=== PATIENT | male | born 1940 | race Caucasian/White ===

== ENCOUNTER 2021-03-30 15:59 | Emergency (ER) | payer MEDICARE, SELFPAY ==
[2021-03-30] VITALS (8 sets, daily range): BP systolic 155–185; BP diastolic 87–100; PULSE 82–99; RESP 18–20; TEMP 37.4; O2SAT 93–99
--- NOTE | ~2021-03-30 | CT_ITS ---
EXAMINATION: CT brain wo con DATE: 03/30/2021 17:57 INDICATION: Mental status change TECHNIQUE: Computed tomography (CT) of the head was performed without intravenous contrast. The mA wa s adjusted according to patient size. Iterative reconstruction technique was employed. Exam dose: 68 1.00 mGy-cm total exam DLP. COMPARISON: None FINDINGS: Dominant left vertebral artery, basilar artery and bilateral carotid siphon internal caroti d artery calcifications. Bilateral chronic lacunar infarcts of the basal ganglia, left greater than right. There is nonspecific diminished attenuation of the cerebral white matter, likely due to chronic small vessel ischemic changes. Cerebral and cerebellar volume loss. No recent cerebrovascular accident is evident. There is no evidence of intracranial hemorrhage. No mi dline shift or mass effect effect. No subdural or epidural hematoma. Soft tissue thickening and fluid at the right sphenoid sinus and patchy opacification of the bilatera l ethmoid air cells. Minimal mucoperiosteal thickening of the maxillary sinuses. The mastoid air cells are normally developed and aerated bilaterally. No fracture or bone destruction of the cranial vault. IMPRESSION: Cerebral atherosclerosis and chronic small vessel ischemic changes of the cerebral white matter Bilateral chronic lacunar infarcts of the basal ganglia, left greater than right Cerebral and cerebellar volume loss Paranasal sinus disease Reviewed, dictated and finalized at [facility]. Reviewed, dictated and finalized at [facility]. IMPRESSION: Cerebral atherosclerosis and chronic small vessel ischemic changes of the cerebral white matter Bilateral chronic lacunar infarcts of the basal ganglia, left greater than righ t Cerebral and cerebellar volume loss Paranasal sinus disease
--- NOTE | ~2021-03-30 | XR_ITS ---
EXAMINATION: XR chest 1V portable DATE: 03/30/2021 17:22 INDICATION: Shortness of breath and wheezing TECHNIQUE: frontal view of the chest was obtained. COMPARISON: None FINDINGS: Calcite nodules at the right lung base and calcified right hilar lymph nodes consistent with old gran ulomatous disease. No other airspace opacities, pulmonary edema, pleural effusion or pneumothorax. Th e cardiomediastinal silhouette is normal. Moderate thoracic spondylosis. IMPRESSION: 1. No acute cardiopulmonary disease. Reviewed, dictated and finalized at [facility].
[2021-03-30 16:52] LABS: Basophils Absolute Auto 0.02 K/mm3 (0.00-0.10); Basophils Percent Auto 0.1 % (0.0-1.0); Hematocrit 43.8 % (37.0-46.0); Hemoglobin 15.1 g/dL (12.4-15.3); Immature Granulocyte Absolute 0.08 K/mm3 (0.00-0.00); Immature Granulocyte Percent A 0.5 % (0.0-0.0); Lymphocytes Absolute Auto 0.36 K/mm3 (1.10-4.50); Lymphocytes Percent Auto 2.2 % (18.0-42.0); Mean Corpuscular HGB Conc 34.5 g/dL (32.0-36.0); Mean Corpuscular Hemoglobin 31.4 pg (27.0-31.0); Mean Corpuscular Volume 91.1 fL (78.0-102.0); Mean Platelet Volume 9.2 fl (8.7-11.0); Monocytes Absolute Auto 0.88 K/mm3 (0.10-0.90); Monocytes Percent Auto 5.4 % (2.0-11.0); Neutrophils Absolute Auto 14.8 K/mm3 (1.7-7.2); Neutrophils Percent Auto 91.8 % (50.0-70.0); Platelet Count Result 163 K/mm3 (150-420); Red Blood Count 4.81 M/mm3 (4.70-6.10); Red Cell Distribution Width 12.4 % (11.6-14.4); White Blood Count 16.2 K/mm3 (4.8-10.8)
--- NOTE | 2021-03-30 16:56 | ECG_ITS ---
Measurements Intervals [place] Rate: 81 P: 43 [place]: 208 QRS: 76 QRSD: 116 T: 87 QT: 405 QTc: 472 Interpretive Statements SINUS RHYTHM WITH FIRST DEGREE AV BLOCK INTRAVENTRICULAR CONDUCTION DELAY MINIMAL Q WAVES- INFERIOR LEADS ANTEROSEPTAL INFARCT, AGE INDETERMINATE BORDERLINE T WAVE ABNORMALITY- HIGH LATERAL LEADS BASELINE ARTIFACT- II, III, AVR, AVL, AVF, V1-V6 ABNORMAL ECG Electronically Signed On 03-30-2021 20:16:27 CDT by Cesar Day D.O.
[2021-03-30] MEDS: DEXAMETHASONE 4 MG TABLET 12 MG PO (17:13)
[2021-03-30 17:16] LABS: Alanine Aminotransferase 18 U/L (16-63); Albumin Level 3.8 g/dL (3.4-5.0); Alkaline Phosphatase 82 U/L (46-116); Anion Gap 14 mmol/L (8-16); Aspartate Amino Transferase 32 U/L (15-37); Bilirubin,Total 2.7 mg/dL (0.00-1.00); Blood Urea Nitrogen 30 mg/dL (7-18); Calcium 9.7 mg/dL (8.5-10.1); Carbon Dioxide 21 mmol/L (21-32); Chloride 105 mmol/L (98-108); Estimated Glomerular Filt Rate > 60; Glucose 115 mg/dL (70-99); NT Pro B Type Natriuretic Pept 1434 pg/mL (0-450); Osmolality Calculated 297 mOsm/kg (285-295); Potassium 4.3 mmol/L (3.5-5.1); Sodium 140 mmol/L (136-145); Total Protein 7.8 g/dL (6.4-8.2)
[2021-03-30 17:17] LABS: Troponin I 184.1 ng/L (0.00-60.4)
[2021-03-30] MEDS: IPRATROPIUM 0.5 MG/ALBUTEROL SULFATE 2.5 MG AMPUL.NEB 3 ML INHALATION (17:21)
[2021-03-30 17:41] LABS: Add Urine Microscopic? YES; Appearance Urine Clear (Clear); Bilirubin Urine Negative (Negative); Blood Urine 1+ (Negative); Color Urine Yellow (Yellow); Glucose Urine UA Negative (Negative); Ketones Urine 3+ (Negative); Leukocyte Esterase Ur Negative LEU/UL (Negative); Nitrate Urine Negative (Negative); Protein Urine Trace (Negative); Specific Grav Ur >= 1.030 (1.010-1.020); Urobilinogen Urine 0.2 mg/dL (0.2-1.0); pH Urine 5.5 (5.0-8.0)
[2021-03-30 17:47] LABS: Bacteria Urine Trace /hpf; RBC Urine 0-2 /hpf (0-2); Squamous Epithelial Cell Urine Rare /hpf (Few); WBC Urine 0-3 /hpf (0-3)
--- NOTE | 2021-03-30 18:33 | ED.WEAKNESS ---
HPI - Weakness General Chief complaint: Weakness Stated complaint: AMB Time Seen by Provider: 03/30/21 16:20 Source: patient and family Mode of arrival: ambulatory Limitations: no limitations History of Present Illness HPI Narrative: Patient presents with a chief complaint of weakness. He is brought in by EMS which was called by family. He lives alone and does not talk much. His speech has been even less over the last two days. He has had no focal weakness noted. He has appeared to be weak by the family. MD Complaint: generalized weakness Onset (ago): day(s) Duration: constant Location: generalized Severity: severe Relieving factors: none Exacerbating factors: none Associated symptoms: denies other symptoms Related Data Home Medications Medication Instructions Recorded Confirmed No Home Medications 03/30/21 03/30/21 Allergies Allergy/AdvReac Type Severity Reaction Status Date / Time No Known Allergies Allergy Verified 03/30/21 18:01 Review of Systems Review of Systems: ROS unobtainable: Yes unobtainable due to mental status Constitutional: Constitutional: Denies chills and Denies fever(s) Eyes: Eyes: Reports no additional eye complaints ENT: Reports system reviewed and no additional complaints, except as documented Cardiovascular: Cardiovascular: Reports no additional cardiovascular complaints Respiratory: Comments: Family states he has had both Covid shots Gastrointestinal: Gastrointestinal: Reports no additional gastrointestinal complaints Genitourinary: Genitourinary: Reports no additional male genitourinary complaints Musculoskeletal: Musculoskeletal: Reports no additional musculoskeletal complaints Integumentary/Breasts: Skin/Breast: Reports system reviewed and no additional complaints, except as docu Neurologic: Reports system reviewed and no additional complaints, except as documented Psychiatric: Psychiatric: Reports no additional psychiatric complaints Endocrine: Endocrine: Reports no additional endocrine complaints Hematologic/Lymphatic: Hematologic/Lymphatic: Reports no additional hematologic/lymphatic complaints Allergic/Immunologic: Allergic/Immunologic: Reports no additional allergic/immunologic complaints ON LICENSE OF [facility] Past Medical History Medical History (Updated 03/30/21 @ 20:19 by Howard Pruitt MD) 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 Detached retina Surgical History Surgical History (Updated 03/30/21 @ 19:48 by Howard Pruitt MD) No significant past surgical history Social History Social History (Updated 03/30/21 @ 19:50 by Howard Pruitt MD) Smoking status: Former smoker Living arrangements: alone Additional living arrangements comments: lives alone, family see after him Exam Const: General: no acute distress and alert HENMT: Head: normal to inspection Ears: external ears normal (wax bilateral) Face and sinus: normal facial exam Mouth: Yes Normal oral and palatal mucosa present and Yes Abnormal oral and palatal mucosa present Throat: posterior oropharynx normal Eyes: Conjunctivae: conjunctivae normal Neck: Neck: normal visual inspection Chest: Chest palpation & inspection: normal inspection of the chest Resp: Effort & Inspection: normal respiratory effort Other: he had some soft wheezing initially, this improved after a duoneb Cardio: Rate: regular rate Rhythm: regular rhythm GI: GI Palp: Yes Soft to palpation (nontender) Skin: General skin exam: normal color Neuro: General: moves all extremities Other: minimal speech, Extrem: General: normal to inspection Psych: Appearance: grossly normal Affect: normal affect Course Course Emergency Course: Labs were done, EKG, CT of head, CXR was reviewed. Discussed with cardiology at [place]. 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 He has been given metoprolol 50mg pm, lovenox, and aspirin 325mg. Vital Signs Vital signs: Vital Signs Temperature 37.4 C
--- NOTE | 2021-03-30 19:05 | PC.NURSE ---
report to vesna colmenares, pt resting per cot, denies any needs at this time, brother in room with him
[2021-03-30] MEDS: METOPROLOL TARTRATE 25 MG TABLET 50 MG (19:30)
[2021-03-30] MEDS: ASPIRIN 81 MG CHEWABLE TABLET 324 MG PO (19:30)
[2021-03-30] MEDS: ENOXAPARIN 100 MG/ML SYRINGE 60 MG SUB-Q (19:43)
--- NOTE | 2021-03-30 19:45 | PC.NURSE ---
Pt. changed of entire linen and clothing removed from pt. Noted soiled clothing and linen, pt incont urine, no verbal communication from pt. Pt. has family (brother and nephew) that speak for pt and are able to give hx. Family reports pt has been getting weaker over the past several weeks. ERP spoke c surfboard maker, awaiting call back from Hospitalist for acceptance.
--- NOTE | 2021-03-30 20:13 | PC.NURSE ---
Dr Pruitt spoke c Dr Millan, accepts for transfer, awaiting call back for bed assignment.
[2021-03-30 20:15] LABS: Lactic Acid Reflex 2.2 mmol/L (0.4-2.0)
[2021-03-30] MEDS: SODIUM CHLORIDE 0.9% IV 1,000 ML 150 ML IV CONT (20:18)
[2021-03-30 20:21] LABS: Ethanol < 3 mg/dL (0-6); Thyroid Stimulating Hormone 0.97 uIU/mL (0.36-3.74)
--- NOTE | 2021-03-30 21:00 | PC.NURSE ---
GBAAS her for pt transfer. Report given and pt. transfered s difficulty.
[2021-03-30 22:59] LABS: Reflex Lactic Acid Yes or No Add Lactic
--- NOTE | 2021-04-03 19:16 | PC.NURSE ---
IV was currently continuing to infuse at time of pt. d/c and continued to infuse when transferred to [facility].
== END 2021-03-30 21:00 | disposition short-term general hospital (02) ==
PROVIDERS: Emergency Provider Emergency Medicine
DX: I21.9 Acute myocardial infarction, unspecified (principal); I63.9 Cerebral infarction, unspecified; Z87.891 Personal history of nicotine dependence; R06.2 Wheezing
CPT/HCPCS: 36415; 70450; 71045; 80053; 80307; 81001; 83605; 83880; 84443; 84484; 85025; 93005; 94640; 96361; 96372; 96374; 99285; A9270; J1650; J7030; J8540

== ENCOUNTER 2021-03-30 22:08 | Inpatient (IN) | payer MEDICARE, SELFPAY ==
--- NOTE | ~2021-03-30 | US_ITS ---
EXAMINATION: US carotid duplex BI EXAM DATE: 03/31/2021 16:21 INDICATION: Stroke. TECHNIQUE: Grayscale, color and pulsed Doppler images of the cervical carotid arteries were obtained . The degree of vessel stenosis is placed in one of the following categories: normal, <50% stenosis, 50-69% stenosis, >=70% stenosis but less than near-occlusion, near-occlusion, or occlusion. Note that percent stenosis relative to normal distal artery lumen diameter is indirectly measured from velocit y measurements as described by Arthur, et al. Radiology 2003; 229:340-346. There is no prior study fo r comparison. FINDINGS: RIGHT SIDE: Right common carotid artery peak systolic velocity (PSV in cm/s): 45 Right bulb/internal carotid artery peak systolic velocity (PSV in cm/s): No flow demonstrated Right internal carotid artery end diastolic velocity (EDV in cm/s): No flow demonstrated Right ICA/CCA peak systolic ratio: Right external carotid artery peak systolic velocity (PSV in cm/s): 218 Right vertebral artery antegrade flow: yes No internal carotid artery flow demonstrated, probably completely occluded. LEFT SIDE: Left common carotid artery peak systolic velocity (PSV in cm/s): 88 Left bulb/internal carotid artery peak systolic velocity (PSV in cm/s): 113 Left internal carotid artery end diastolic velocity (EDV in cm/s): 22 Left ICA/CCA peak systolic ratio: 1.3 Left external carotid artery peak systolic velocity (PSV in cm/s): 192 Left vertebral artery antegrade flow: yes There is moderate carotid bulb plaque, accommodated by the bulbs dilation. Velocity and Doppler waveforms in the common and internal carotid arteries is normal. IMPRESSION: 1. 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 2. Less than 50 percent stenosis in the left internal carotid artery. > Reviewed, dictated and finalized at [facility].
--- NOTE | ~2021-03-30 | MR_ITS ---
EXAMINATION: MR brain/brain stem wo con EXAM DATE: 04/01/2021 08:27 INDICATION: Stroke. TECHNIQUE: Magnetic resonance imaging (MRI) of the brain/brain stem obtained without contrast. Sagitt al T1, axial diffusion, gradient echo (T2*), T1, T2, FLAIR sequences obtained. Correlation is made t o head CT 03/30/2021. FINDINGS: There is a left-sided renetta infarction, rather sizable for its location. There is also a pun ctate left parietal lobe cortical infarction. There are old bilateral periventricular infarctions. O ld small left basal ganglia lacunar infarction. Dilated perivascular spaces. Moderate microangiopathy and cerebral atrophy. No acute intracranial hemorrhage, extra-axial collections or obstructive hydro cephalus. Bilateral cataract surgery. Mild sinus mucoperiosteal thickening. Flow voids are seen in th e cerebral arteries on the T2 weighted sequences consistent with their expected patency. IMPRESSION: 1. Acute left renetta infarction. Punctate acute left parietal lobe infarction. 2. Old small periventricular and left basal ganglia lacunar infarctions. 3. Microangiopathy and cerebral atrophy. Reviewed, dictated and finalized at [facility].
[2021-03-30 22:10] VITALS: BP 155/97; PULSE 76; RESP 20; TEMP 36.6; O2SAT 94
--- NOTE | 2021-03-30 22:27 | ADMGEN ---
This patient, Johann Anders, was admitted to IMU Room 206-02. Patient/family oriented to hospital policies and general routines including ID bracelet, bed and alarms, visiting hours, pain management, procedures, bathroom and other care routines, personal items, smoking policy, room service/diet, and visiting hours. Information on how to activate the Rapid Response Team has been discussed. Patient/Family are encouraged to report perceived risks to care and to ask questions if they do not understand what they are told or what they should do. arrived from [facility] approx [id number] via ambulance
[2021-03-30 23:26] LABS: Troponin I 0.212 ng/mL (0.000-0.034)
[2021-03-31] VITALS (13 sets, daily range): BP systolic 121–155; BP diastolic 66–89; PULSE 61–77; RESP 18–22; TEMP 36.4–36.6; O2SAT 94–97
[2021-03-31 02:06] LABS: Troponin I 0.191 ng/mL (0.000-0.034)
[2021-03-31] MEDS: SODIUM CHLORIDE 0.9% IV 1,000 ML 100 ML IV CONT ×2 (04:34→14:39)
[2021-03-31 05:18] LABS: Basophils Percent Auto 0.2 % (0.2-1.2); Hematocrit 44.1 % (42.0-52.0); Hemoglobin 15.2 g/dL (14.0-18.0); Immature Granulocyte Absolute 0.09 K/mm3 (0.00-0.031); Immature Granulocyte Percent A 0.8 % (0-0.5); Lymphocytes Absolute Auto 0.61 K/mm3 (0.9-3.2); Lymphocytes Percent Auto 5.2 % (18.3-44.2); Mean Corpuscular HGB Conc 34.5 g/dl (32-36); Mean Corpuscular Hemoglobin 30.8 pg (26-34); Mean Corpuscular Volume 89.3 fl (80-100); Mean Platelet Volume 9.5 fl (7.4-10.4); Monocytes Absolute Auto 0.3 K/mm3 (0.1-0.6); Monocytes Percent Auto 2.8 % (2.6-8.5); Neutrophils Absolute Auto 10.6 K/mm3 (1.3-6.7); Platelet Count Result 170 k/mm3 (150-375); Red Blood Count 4.94 M/mm3 (4.6-6.20); Red Cell Distribution Width 12.7 % (11.5-14.5); White Blood Count 11.7 K/mm3 (4.5-10.0)
[2021-03-31 05:35] LABS: Lactic Acid Reflex 1.5 mmol/L (0.7-2.1)
[2021-03-31 05:38] LABS: Anion Gap 11 mmol/L (8-16); Blood Urea Nitrogen 25 mg/dL (9-20); Calcium 9.2 mg/dL (8.4-10.2); Carbon Dioxide 19 mmol/L (22-30); Chloride 111 mmol/L (98-107); Estimated Glomerular Filt Rate > 60; Glucose 137 mg/dL (75-110); Potassium 3.9 mmol/L (3.4-5.0); Sodium 141 mmol/L (137-145)
[2021-03-31 05:42] LABS: Troponin I 0.161 ng/mL (0.000-0.034)
--- NOTE | 2021-03-31 07:02 | PM.IMHP ---
H&P: HPI History of Present Illness Date/Time: 03/31/21 07:02 Chief Complaint: Weakness Narrative: 80-year-old male who presented to [facility] via private vehicle due to weakness. The patient has not seen a physician in many years. His family reports that the patient never talks very much and they usually have to pry answers out of him. They patient is nephew reports that the patient has not been talking as much over the last couple of days. The patient's son reports the patient has been having problems with dribbling of urine constantly. The patient himself states that he has been having difficulty controlling his urine for about 3 years. He reports he has an urge to go P but will have difficulty initiating his stream. He denies any dysuria. He denies any abdominal pain. He has not been having any cough or congestion. He denies any headache. He saw all an credit verification clerk in was placed on eyedrops but the family is unsure if the patient is using the eyedrops. His eyedrops were refilled on the 22 of March. He the patient denies any cough or congestion. According to the outside records the patient did receive both COVID vaccines. The patient does seem to have difficulty speaking clearly. Both he and his family states that this is unchanged from baseline. This is likely due to prior CVAs liver noted on CT scan from outside facility. The patient denies a known history of prior CVA's but again he has not seen a doctor in many years. At the outside facility patient has noted to be markedly hypertensive and received full-dose aspirin and metoprolol. He received a dose of therapeutic Lovenox. Review of Systems Review of Systems: Narrative: 12 systems were reviewed with pertinent positives and negatives per HPI. Except as documented in the HPI, all other systems were reviewed and are negative. However limited as the patient only speaks in 1-2 word responses it is not the best historian. 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 He has 1 son who lives in [place]. He has a nephew that lives nearby. He is a former smoker he quit smoking several weeks ago. Prior to quitting he smoked 1 pack per day from a young age. He denies any alcohol use. Code status: DNR Surrogate decision maker: Son Smoking packs per day: 1 Smoking cigarettes per day: 20.0 Years smoked: 60 Smoking pack-years: 60.00 Smoking status: Former smoker Tobacco type: cigarettes Alcohol intake: never Substance use: never Additional living arrangements comments: lives alone, family see after him Gender identity (if verbalized by the patient): Male Spiritual care concerns: No Meds Home Medications and Allergies Home Medications Medication Instructions Recorded Confirmed Type latanoprost 1 drp EACH EYE DAILY 03/31/21 03/31/21 History Allergies Allergy/AdvReac Type Severity Reaction Status Date / Time No Known Allergies Allergy Verified 03/30/21 18:01 Vital Signs Vital Signs - 24 hr 03/30/21 22:10 03/31/21 00:00 03/31/21 02:00 Temperature 97.8 F Pulse Rate 76 71 76 Respiratory Rate 20 Blood Pressure 155/97 H Pulse Oximetry 94 03/31/21 04:00 03/31/21 06:00 Temperature 97.6 F Pulse Rate 75 61 Respiratory Rate 19 Blood Pressure 143/89 H Pulse Oximetry 94
[2021-03-31] MEDS: LATANOPROST 0.005% OP SOLN 2.5 ML BTL 1 DROP EACH EYE (09:05)
[2021-03-31] MEDS: ENOXAPARIN 40 MG/0.4 ML SYRINGE SUB-Q (09:05)
[2021-03-31] MEDS: TAMSULOSIN HCL 0.4 MG CAPSULE PO (09:06)
[2021-03-31] MEDS: METOPROLOL SUCCINATE EXT REL 50 MG TABCR PO (09:06)
--- NOTE | 2021-03-31 09:25 | PM.CNCAR ---
Assessment and Plan Assessment and plan (1) Elevated troponin: Code(s): R77.8 - Other specified abnormalities of plasma proteins Status: Acute Assessment and Plan: 80 y/o male with no recent medical follow up who presents with fall and found to have mildly elevated troponin He has mild trop elevation that peaked at 0.2. No chest pain or ischemic changes on EKG Presentation with fall and aphasia as well as HTN is concerning for possible CVA. His CT of head showed chronic lacunar infarcts. Consider MRI of brain. trop elevation could be is in the setting of acute CVA Vs due to increase demand from lactic acidosis and dehydration Vs less likely ACS Will check 2D echocardiogram Will hold off starting antihypertensive pending neurology evaluation and rule out of CVA Start ASA and statin (2) CVA (cerebral vascular accident): Code(s): I63.9 - Cerebral infarction, unspecified Status: Acute Assessment and Plan: Old infarcts on CT. Now present with fall and aphasia. Consider neurology consult (3) HTN (hypertension): Code(s): I10 - Essential (primary) hypertension Status: Acute Assessment and Plan: Hold off starting meds till neurology evaluation. BP now is only mildly elevated History of Present Illness History of Present Illness Consult date/time: 03/31/21 09:25 80 y/o male with no h/o tobacco abuse but no known medical history however no medical follow up for years who presents with generalized weakness and fall Patient is not able to give any meaningful history. History obtained per nephew on the phone. Family walked in to his apartment around 2:00 pm and patient was found laying down on the floor. He appeared confused but denied pain .His stove was on and family believes he was probably trying to fix his breakfast when he feel. He was last seen okay on Monday. His troponin was noted to be mildly elevated and it peaked at 0.2 EKG shows normal sinus rhythm, inferior Q waves, LVH He had CT that showed old lacunar infarcts. His BP was noted to be elevated. He has no recent medical follow up except for ophthalmology but per family his BP usually okay at the kitchen hand office. He quit smoking 2-3 weeks ago Reason For Visit: Elevated troponin Review of Systems Review of Systems: All systems reviewed & are unremarkable except as noted in HPI and below Constitutional: Constitutional: Denies fatigue and Denies headache(s) Eyes: Eyes: Denies blurry vision ENT: Reports Normal hearing present and Denies headache(s) Cardiovascular: Cardiovascular: Denies chest pain, Denies diaphoresis, Denies pedal edema, Denies leg edema, Denies lightheadedness, Denies palpitations and Denies dyspnea Respiratory: Respiratory: Denies cough and Denies dyspnea Gastrointestinal: Gastrointestinal: Denies abdominal pain Musculoskeletal: Musculoskeletal: Denies back pain Neurologic: Reports Normal hearing present and Denies headache(s) Psychiatric: Psychiatric: Denies anxiety Endocrine: Endocrine: Denies fatigue and Denies palpitations [facility] Past Medical History Medical History (Updated 03/31/21 @ 09:50 by Jeff Haley MD) 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 He has 1 son who lives in [place]. He has a nephew that lives nearby. He is a former smoker he quit smoking several weeks ago. Prior to quitting he smoked 1 pack per day from a young age.
--- NOTE | 2021-03-31 09:56 | ECHO_ITS ---
Patient Info Name: Johann Anders Age: 80 years : 1940 Gender: Male Ht: 63 in Wt: 132 lbs BSA: 1.64 m2 HR: 65 bpm BP: 155 / 77 mmHg Technical Quality: Good Exam Date: 03/31/2021 2:10 PM Exam Location: [facility] Pulmonary Exam Room: [facility] Patient Status: Outpatient Admit Date: 03/30/2021 Staff Ordering Physician: Jeff Haley MD (jacy/charity) Pumper Helper: Crystal Sesay RDCS Attending Provider: Stephania Millan DO Referring Physician: Jeff Haley MD (jacy/charity); Exam Type: CA echo doppler color flow Study Info Indications - ELEVATED TROPONINS Complete two-dimensional, color flow and Doppler transthoracic echocardiogram is performed. Summary 1. Complete two-dimensional, color flow and Doppler transthoracic echocardiogram is performed. 2. There is mildly increased left ventricular wall thickness. 3. Left ventricular systolic function is normal, estimated at 50-55%. 4. Paradoxical septal bounce noted. 5. The aortic valve is trileaflet. 6. There is no aortic valve stenosis. 7. The mitral valve has normal leaflets. 8. There is no mitral valve regurgitation. 9. inferior vena cava is normal in size and collapse with inspiration. 10. There is no pericardial effusion. Left Ventricle Left ventricular chamber dimension is normal. Left ventricular systolic function is normal, estimated at 50-55%. There is mildly increased left ventricular wall thickness. Paradoxical septal bounce noted. The left ventricular diastolic function is grade I diastolic dysfunction. Right Ventricle Right ventricular chamber dimension is normal. Right ventricular systolic function is normal. Left Atria Left atrial chamber dimension is normal. Right Atria Right atrial chamber dimension is normal. Aortic Valve The aortic valve is trileaflet. There is no aortic valve sclerosis. There is no aortic valve stenosis. There is no aortic valve regurgitation. Pulmonic Valve The pulmonic valve is normal. There is no pulmonic valve stenosis. There is no pulmonic regurgitation. Mitral Valve The mitral valve has normal leaflets. There is no mitral valve stenosis. There is no mitral valve regurgitation. Tricuspid Valve The tricuspid valve leaflets are normal. There is trace tricuspid valve regurgitation. No pulmonary hypertension. RVSP 30-35mmHg. Pericardium/Pleural The pericardium appears normal. There is no pericardial effusion. Inferior Vena Cava inferior vena cava is normal in size and collapse with inspiration. Aorta The aortic root size at the sinus of Valsalva is normal. The prox ascending aorta size is normal. Left Ventricular Outflow Tract Name Value Normal LVOT 2D LVOT Diameter 2.1 cm LVOT Doppler LVOT Peak Gradient 4 mmHg LVOT Mean Gradient 2 mmHg LVOT VTI 21 cm LVOT VTI/AV VTI Ratio 0.8 LVOT Stroke Volume 75 ml LVOT CO 15.9 l/min LVOT CI
[2021-03-31 14:36] LABS: LDL Cholesterol Direct 136 mg/dL
[2021-03-31 14:46] LABS: Cholesterol 264 mg/dL (0-200); HDL Direct 77 mg/dL; Triglycerides 39 mg/dL (<150)
--- NOTE | 2021-03-31 16:53 | WPDNEURCNPN ---
Assessment and Plan Additional Plan cardiac workup is going on in the meantime will obtain the MRI of the brain for the further delineation of the stroke and treatment will be accordingly Consult date: 03/31/21 Time Seen: 11:30 HPI: Johann Anders is a 80 year old male admitted to the hospital via [facility] in [place] with the complaints of not talking very well over the last several days in addition to the dribbling of urine and difficulties in initiating the urination patient has been having difficulties in speech but the family thinks it is unchanged and is probably related to his previous strokes. 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 and glaucoma pertinent investigations include CT scan with bilateral chronic lacunar infarct of the basal ganglia left greater than right along with cerebral and cerebellar volume loss additionally occluded right internal carotid artery and less than 50% stenosis of left internal carotid artery on the ultrasound of the carotid chest x-ray is negative Review of Systems Review of Systems: All systems reviewed & are unremarkable except as noted in HPI and below PMFSH Past Medical History Medical History 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 He has 1 son who lives in [place]. He has a nephew that lives nearby. He is a former smoker he quit smoking several weeks ago. Prior to quitting he smoked 1 pack per day from a young age. He denies any alcohol use. Code status: DNR Surrogate decision maker: Son Smoking packs per day: 1 Smoking cigarettes per day: 20.0 Years smoked: 60 Smoking pack-years: 60.00 Smoking status: Former smoker Tobacco type: cigarettes Alcohol intake: never Substance use: never Additional living arrangements comments: lives alone, family see after him Gender identity (if verbalized by the patient): Male Spiritual care concerns: No Meds Home Medications and Allergies Home Medications Medication Instructions Recorded Confirmed Type latanoprost 1 drp EACH EYE DAILY 03/31/21 03/31/21 History Allergies Allergy/AdvReac Type Severity Reaction Status Date / Time No Known Allergies Allergy Verified 03/30/21 18:01 Vital Signs Vital Signs - 24 hr 03/30/21 22:10 03/31/21 00:00 03/31/21 02:00 Temperature 36.6 C Pulse Rate 76 71 76 Respiratory Rate 20 Blood Pressure 155/97 H Pulse Oximetry 94 03/31/21 04:00 03/31/21 06:00 03/31/21 08:00 Temperature 36.4 C 36.4 C L Pulse Rate 75 61 65 Respiratory Rate 19 22 H Blood Pressure 143/89 H 155/77 H Pulse Oximetry 94 95 03/31/21 09:06 03/31/21 10:00 03/31/21 12:00 Temperature 36.6 C Pulse Rate 65 69 62 Respiratory Rate 18 Blood Pressure 121/73 Pulse Oximetry 97 03/31/21 14:00 03/31/21 16:00 Temperature 36.6 C Pulse Rate 68 62 Respiratory Rate 18 Blood Pressure 121/73 Pulse Oximetry 97 Exam Narrative: Exam Narrative: reveals him to be awake alert in no obvious acute distress head normocephalic with no cranial bruit ear nose throat examination normal neck is supple with no cervical bruit heart regular lungs clear with no rhonchi or crepitations abdomen is soft with no organomegaly neurological he is awake alert extraocular moves are full face symmetr
[2021-03-31] MEDS: ASPIRIN 81 MG ENTERIC TABLET PO (19:48)
[2021-03-31] MEDS: ATORVASTATIN 40 MG TABLET PO (20:34)
[2021-04-01] VITALS (20 sets, daily range): BP systolic 138–168; BP diastolic 56–134; PULSE 59–78; RESP 18–20; TEMP 35.8–36.8; O2SAT 95–98
[2021-04-01] MEDS: SODIUM CHLORIDE 0.9% IV 1,000 ML 100 ML IV CONT (04:27)
--- NOTE | 2021-04-01 08:18 | PM.PNCARD ---
Progress Note: A&P Assessment and Plan (1) Elevated troponin: Code(s): R77.8 - Other specified abnormalities of plasma proteins Status: Acute Assessment and Plan: 80 y/o male with no recent medical follow up who presents with fall and found to have mildly elevated troponin He has mild trop elevation that peaked at 0.2. No chest pain or ischemic changes on EKG MRI of brain revealed Acute left renetta infarction trop elevation is likely associated with the acute CVA Vs due to increase demand from lactic acidosis Vs less likely ACS 2D echo reviewed, normal LV function and obvious wilmer wall motion changes Start ASA and statin Neurology on board for acute CVA. (2) CVA (cerebral vascular accident): Code(s): I63.9 - Cerebral infarction, unspecified Status: Acute Assessment and Plan: Acute left renetta infarction noted on MRI Carotid US revealed occluded right internal carotid artery Continue ASA and statin Neurology on board (3) HTN (hypertension): Code(s): I10 - Essential (primary) hypertension Status: Acute Assessment and Plan: Metoprolol started per primary team. Subjective Date/time seen: 04/01/21 08:18 Review of Systems Review of Systems: All systems reviewed & are unremarkable except as noted in HPI and below Constitutional: Constitutional: Denies fatigue and Denies headache(s) Eyes: Eyes: Denies blurry vision ENT: Reports Normal hearing present and Denies headache(s) Cardiovascular: Cardiovascular: Denies chest pain, Denies diaphoresis, Denies pedal edema, Denies leg edema, Denies lightheadedness, Denies palpitations and Denies dyspnea Respiratory: Respiratory: Denies cough and Denies dyspnea Gastrointestinal: Gastrointestinal: Denies abdominal pain Musculoskeletal: Musculoskeletal: Denies back pain Neurologic: Reports Normal hearing present and Denies headache(s) Psychiatric: Psychiatric: Denies anxiety Endocrine: Endocrine: Denies fatigue and Denies palpitations Exam Const: General: no acute distress Eyes: Sclera: sclerae normal Neck: Neck: no JVD Carotids: no bruits Resp: Effort & Inspection: normal respiratory effort Auscultation: clear to auscultation bilaterally Cardio: Rate: regular rate and not tachycardic Rhythm: regular rhythm Heart sounds: no gallops, no murmurs and no rubs Skin: General skin exam: normal color Neuro: Cranial nerves: Yes Normal hearing present Speech: normal speech Extrem: General: normal to inspection and no edema Psych: Affect: normal affect Objective Data Vital Signs Vital Signs: Vital Signs - 24 hr 03/31/21 09:06 03/31/21 10:00 03/31/21 12:00 Temperature 36.6 C Pulse Rate 65 69 62 Respiratory Rate 18 Blood Pressure 121/73 Pulse Oximetry 97 03/31/21 14:00 03/31/21 16:00 03/31/21 18:00 Temperature 36.6 C Pulse Rate 68 69 69 Respiratory Rate 22 H Blood Pressure 143/67 H Pulse Oximetry 95 03/31/21 20:00 03/31/21 22:00 04/01/21 00:00 Temperature 36.6 C 36.6 C Pulse Rate 77 70 66 Respiratory Rate 20 20 Blood Pressure 134/66 140/56 L Pulse Oximetry 95 96 04/01/21 02:00 04/01/21 04:00 04/01/21 06:00 Temperature 36.5 C Pulse Rate 59 L 74 65 Respiratory Rate 20 Blood Pressure 138/60 Pulse Oximetry 96 Intake/Output Intake/Output: Intake & Output 03/29/21 03/30/21 03/31/21 04/01/21 23:59 23:59 23:59 23:59 Intake Total 1100 1250 Balance 1100 1250 Meds/Results Medications: Active Medications Generic Name Dose Route Start Last Admin Trade Name Daneq PRN Reason Stop Dose Admin Acetaminophen 650 mg 03/31/21 01:05 Acetaminophen 325 Mg Tablet PO Q4H PRN Mild Pain (1-3) or Fever Aspirin 81 mg 03/31/21 12:50 03/31/21 19:48 Aspirin 81 Mg Enteric Tablet PO 81 mg [facility] Administration Atorvastatin Calcium 40 mg 03/31/21 21:00 03/31/21 20:34 Atorvastatin 40 Mg Tablet PO 40 mg [facility]
[2021-04-01] MEDS: TAMSULOSIN HCL 0.4 MG CAPSULE PO (09:52)
[2021-04-01] MEDS: METOPROLOL SUCCINATE EXT REL 50 MG TABCR PO (09:52)
[2021-04-01] MEDS: LATANOPROST 0.005% OP SOLN 2.5 ML BTL 1 DROP EACH EYE (09:53)
[2021-04-01] MEDS: ENOXAPARIN 40 MG/0.4 ML SYRINGE SUB-Q (09:53)
[2021-04-01] MEDS: ASPIRIN 81 MG ENTERIC TABLET PO (09:53)
--- NOTE | 2021-04-01 11:03 | WPDNEUROPN ---
Progress Note: A&P Additional Plan will benefit from the long-term antihypertensive treatment along with the aspirin and Plavix for the time being and further adjustment accordingly, just have to make sure that he does not have underlying atrial fibrillation Review of Systems Review of Systems: All systems reviewed & are unremarkable except as noted in HPI and below Exam Narrative: Exam Narrative: on examination today he is awake alert in no obvious acute distress head normocephalic with no cranial bruit ear nose throat examination normal neck supple with no cervical bruit no thyromegaly no lymphadenopathy heart regular lungs clear with no rhonchi or crepitation abdomen is soft with no organomegaly neurological he is awake alert tries to follow the verbal commands appropriately extraocular movements are sluggish face symmetric tongue midline motor examination revealed him to have hemiparesis hyperreflexia upgoing plantar response Objective Data Vital Signs Vital Signs: Vital Signs - 24 hr 03/31/21 12:00 03/31/21 14:00 03/31/21 16:00 Temperature 36.6 C 36.6 C Pulse Rate 62 68 69 Respiratory Rate 18 22 H Blood Pressure 121/73 143/67 H Pulse Oximetry 97 95 03/31/21 18:00 03/31/21 20:00 03/31/21 22:00 Temperature 36.6 C Pulse Rate 69 77 70 Respiratory Rate 20 Blood Pressure 134/66 Pulse Oximetry 95 04/01/21 00:00 04/01/21 02:00 04/01/21 04:00 Temperature 36.6 C 36.5 C Pulse Rate 66 59 L 74 Respiratory Rate 20 20 Blood Pressure 140/56 L 138/60 Pulse Oximetry 96 96 04/01/21 06:00 04/01/21 08:56 04/01/21 09:52 Temperature 36.3 C L Pulse Rate 65 65 66 Respiratory Rate 20 Blood Pressure 164/80 H Pulse Oximetry 95 Intake/Output Intake/Output: Intake & Output 03/29/21 03/30/21 03/31/21 04/01/21 23:59 23:59 23:59 23:59 Intake Total 1100 1610 Balance 1100 1610 Meds/Results Medications: Active Medications Generic Name Dose Route Start Last Admin Trade Name Freq PRN Reason Stop Dose Admin Acetaminophen 650 mg 03/31/21 01:05 Acetaminophen 325 Mg Tablet PO Q4H PRN Mild Pain (1-3) or Fever Aspirin 81 mg 03/31/21 12:50 04/01/21 09:53 Aspirin 81 Mg Enteric Tablet PO 81 mg QAM KI Administration Atorvastatin Calcium 40 mg 03/31/21 21:00 03/31/21 20:34 Atorvastatin 40 Mg Tablet PO 40 mg HS KI Administration Enoxaparin Sodium 40 mg 03/31/21 09:00 04/01/21 09:53 Enoxaparin 40 Mg/0.4 Ml Syringe SUB-Q 40 mg DAILY KI Administration Sodium Chloride 1,000 mls @ 100 mls/hr 03/31/21 01:05 04/01/21 07:24 Normal Saline Iv IV CONT 0 mls/hr .Q10H KI Infusion Latanoprost 1 drop 03/31/21 09:00 04/01/21 09:53 Latanoprost 0.005% Op Soln 2.5 Ml Btl EACH EYE 1 drop DAILY KI Administration Metoprolol Succinate 50 mg 03/31/21 09:00 04/01/21 09:52 Metoprolol Succinate Ext Rel 50 Mg Tabcr PO 50 mg QAM KI Administration Tamsulosin HCl 0.4 mg 03/31/21 09:00 04/01/21 09:52 Tamsulosin Hcl 0.4 Mg Capsule PO 0.4 mg QAM KI Administration Radiology Results: ITS Impressions Carotid Doppler Study 03/31/21 16:31 IMPRESSION: 1. 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 2. Less than 50 percent stenosis in the left internal carotid artery. > Brain MRI 04/01/21 08:48 IMPRESSION: 1. Acute left renetta infarction. Punctate acute left parietal lobe infarction. 2. Old small periventricular and left basal ganglia lacunar infarctions. 3. Microangiopathy and cerebral atrophy. Labs Labs: Laboratory Results - last 24 hr 03/31/21 04:45 Triglycerides 39 Cholesterol 264 H LDL Cholesterol Direct 136 HDL Direct 77 Quality VTE Prophylaxis VTE prophylaxis: pharmacologic ordered (Lovenox 40 mg subq daily)
--- NOTE | 2021-04-01 15:05 | PM.IMPN ---
Progress Note: A&P Assessment and Plan (1) Elevated troponin: Code(s): R77.8 - Other specified abnormalities of plasma proteins Status: Acute (2) Generalized weakness: Code(s): R53.1 - Weakness Status: Acute (3) Uncontrolled hypertension: Code(s): I10 - Essential (primary) hypertension Status: Acute (4) Dehydration: Code(s): E86.0 - Dehydration Status: Acute (5) Lactic acidosis: Code(s): E87.2 - Acidosis Status: Acute (6) BPH (benign prostatic hyperplasia): Qualifiers: Lower urinary tract symptom presence: symptoms present Lower urinary tract symptom detail: post-void dribbling Qualified Code(s): N40.1 - Benign prostatic hyperplasia with lower urinary tract symptoms; N39.43 - Post-void dribbling Code(s): N40.0 - Benign prostatic hyperplasia without lower urinary tract symptoms Status: Acute (7) CVA (cerebral vascular accident): Code(s): I63.9 - Cerebral infarction, unspecified Status: Acute Additional Plan # Found on the floor # acute stroke: with right sided weakness and speech impairment. CT head with chronic lacunar infarcst. MRi brain with acute left pontine and parietal infarction. on aspirin, statin. add plavix. as neuro recommends. carotid with right chronically occluded LEXI and < 50% LICA. echow ith no pfo or thrombus. # Elevated tronponin: unlikely primary event. serial trops flat. likely demand ischamic from acute stroke. # HTN: on metoprolol. allow permissive hypertension # chronically occluded right internal carotid arery # lactic acidosis: resolved now. # aphasia # Dysphagia # hx of retinal detachemne tnad chorioretinal scar, glaucoma # cerebral and cerebellar atrophy noted # DVT proph: lovenox # BPH: flomax # disposition: needs pt/ot/st. needs acute rehabialiation. cm aware. pt/ot/st following. # full code Discussed with son and his (over the phoone) Subjective Date/time seen: 04/01/21 15:05 Interval history: sitting on the chiar today, right sided weakness persists, no fever, chills. bp has improved. ate some breakfast. speech is not so clear. Review of Systems Review of Systems: Narrative: - CONSTITUTIONAL: Denies weight loss, fever and chills. - HEENT: Denies changes in vision and hearing - RESPIRATORY: Denies SOB and cough. - CV: Denies palpitations and CP. - GI: Denies abdominal pain, nausea, vomiting and diarrhea. - : Denies dysuria and urinary frequency. - MSK: Denies myalgia and joint pain. - SKIN: Denies rash and pruritus. - NEUROLOGICAL: Denies headache and syncope. - PSYCHIATRIC: Denies recent changes in mood. Denies anxiety and depression. All systems reviewed & are unremarkable except as noted in HPI and below Constitutional: Constitutional: Reports fatigue and Reports weakness Neurologic: Reports weakness Endocrine: Endocrine: Reports fatigue Exam Narrative: Exam Narrative: General: Chronically ill-appearing, not in acute distress HEENT: Mucous membranes are dry, edentulous in upper and lower jaw, head is normocephalic atraumatic, pupils are equal and reactive Respiratory: Clear to auscultation bilaterally, no increased work of breathing Cardiovascular: Regular rate, regular rhythm, 2+ bilateral radial pedal pulses Gastrointestinal: Soft, nontender, nondistended, positive bowel sounds Skin: Bruising to the left wrist and abrasion bruise to the right elbow Musculoskeletal: No clubbing, cyanosis or edema, Neurological: Alert and convesan,s pseech is garbled, follows simple commands, right ue and le is weak 3/5 , left ue and le 5/5 Psychiatric: Cooperative, flat affect Hematologic/lymphatic: Bruise to the left wrist, no active bleeding, no anterior cervical or submandibular lymphadenopathy Objective Data Vital Signs Vital Signs: Vital Signs - 24 hr 03/31/21 16:00 03/31/21 18:00 03/31/21 20:00 Temperature 97.8 F 97.8 F Pulse Rate 69 69 77
[2021-04-01] MEDS: CLOPIDOGREL BISULFATE 75 MG TABLET PO (17:41)
[2021-04-01] MEDS: ATORVASTATIN 40 MG TABLET PO (20:07)
[2021-04-02] VITALS (14 sets, daily range): BP systolic 150–176; BP diastolic 74–86; PULSE 58–87; RESP 16–20; TEMP 36.1–36.6; O2SAT 97–99
[2021-04-02] MEDS: SODIUM CHLORIDE 0.9% IV 1,000 ML 60 ML IV CONT (02:15)
[2021-04-02 05:24] LABS: Basophils Percent Auto 0.2 % (0.2-1.2); Eosinophils Absolute Auto 0.2 K/mm3 (0-0.3); Eosinophils Percent Auto 2.1 % (0-4.4); Hematocrit 38.7 % (42.0-52.0); Immature Granulocyte Absolute 0.04 K/mm3 (0.00-0.031); Immature Granulocyte Percent A 0.5 % (0-0.5); Immature Platelet Fraction Pct 3.4 % (0.9-11.2); Lymphocytes Absolute Auto 0.95 K/mm3 (0.9-3.2); Lymphocytes Percent Auto 11.6 % (18.3-44.2); Mean Corpuscular HGB Conc 33.6 g/dl (32-36); Mean Corpuscular Volume 92.4 fl (80-100); Mean Platelet Volume 9.8 fl (7.4-10.4); Monocytes Absolute Auto 0.6 K/mm3 (0.1-0.6); Neutrophils Absolute Auto 6.4 K/mm3 (1.3-6.7); Neutrophils Percent Auto 78.6 % (45.5-73.1); Platelet Count Result 154 k/mm3 (150-375); Red Blood Count 4.19 M/mm3 (4.6-6.20); Red Cell Distribution Width 12.9 % (11.5-14.5); White Blood Count 8.2 K/mm3 (4.5-10.0)
[2021-04-02 05:31] LABS: Anion Gap 6 mmol/L (8-16); Blood Urea Nitrogen 17 mg/dL (9-20); Calcium 8.1 mg/dL (8.4-10.2); Carbon Dioxide 22 mmol/L (22-30); Chloride 110 mmol/L (98-107); Estimated CRCL calculation 56 ml/min; Estimated Glomerular Filt Rate > 60; Glucose 96 mg/dL (75-110); Potassium 3.5 mmol/L (3.4-5.0); Sodium 138 mmol/L (137-145)
--- NOTE | 2021-04-02 08:42 | PM.PNCARD ---
Progress Note: A&P Assessment and Plan (1) Elevated troponin: Code(s): R77.8 - Other specified abnormalities of plasma proteins Status: Acute Assessment and Plan: 80 y/o male with no recent medical follow up who presents with fall and found to have mildly elevated troponin He has mild trop elevation that peaked at 0.2. No chest pain or ischemic changes on EKG MRI of brain revealed Acute left renetta infarction trop elevation is likely associated with the acute CVA Vs due to increase demand from lactic acidosis Vs less likely ACS 2D echo reviewed, normal LV function and obvious regional wall motion changes Start ASA and plavix per neurology. Also started statin Neurology on board for acute CVA. He is stable for discharge from cardiac standpoint. Will need follow up in 1-2 weeks (2) CVA (cerebral vascular accident): Code(s): I63.9 - Cerebral infarction, unspecified Status: Acute Assessment and Plan: Acute left renetta infarction noted on MRI Carotid US revealed occluded right internal carotid artery Continue ASA and statin Neurology on board (3) HTN (hypertension): Code(s): I10 - Essential (primary) hypertension Status: Acute Assessment and Plan: Metoprolol started per primary team. Subjective Date/time seen: 04/02/21 08:42 No overnight events. Denies chest pain or dyspnea Review of Systems Review of Systems: All systems reviewed & are unremarkable except as noted in HPI and below Constitutional: Constitutional: Denies fatigue and Denies headache(s) Eyes: Eyes: Denies blurry vision ENT: Reports Normal hearing present and Denies headache(s) Cardiovascular: Cardiovascular: Denies chest pain, Denies diaphoresis, Denies pedal edema, Denies leg edema, Denies lightheadedness, Denies palpitations and Denies dyspnea Respiratory: Respiratory: Denies cough and Denies dyspnea Gastrointestinal: Gastrointestinal: Denies abdominal pain Musculoskeletal: Musculoskeletal: Denies back pain Neurologic: Reports Normal hearing present and Denies headache(s) Psychiatric: Psychiatric: Denies anxiety Endocrine: Endocrine: Denies fatigue and Denies palpitations Exam Const: General: no acute distress Eyes: Sclera: sclerae normal Neck: Neck: no JVD Carotids: no bruits Resp: Effort & Inspection: normal respiratory effort Auscultation: clear to auscultation bilaterally Cardio: Rate: regular rate and not tachycardic Rhythm: regular rhythm Heart sounds: no gallops, no murmurs and no rubs Skin: General skin exam: normal color Neuro: Cranial nerves: Yes Normal hearing present Speech: normal speech Extrem: General: normal to inspection and no edema Psych: Affect: normal affect Objective Data Vital Signs Vital Signs: Vital Signs - 24 hr 04/01/21 08:56 04/01/21 09:52 04/01/21 10:00 Temperature 36.3 C L Pulse Rate 65 66 69 Respiratory Rate 20 Blood Pressure 164/80 H Pulse Oximetry 95 04/01/21 12:00 04/01/21 12:10 04/01/21 14:00 Temperature 35.8 C L Pulse Rate 67 67 75 Respiratory Rate 20 20 Blood Pressure 166/134 H Pulse Oximetry 97 97 04/01/21 15:15 04/01/21 16:00 04/01/21 16:50 Temperature 36.1 C L Pulse Rate 70 69 69 Respiratory Rate 20 20 Blood Pressure 153/82 H Pulse Oximetry 96 96 04/01/21 18:00 04/01/21 19:54 04/01/21 20:00 Temperature 36.8 C Pulse Rate 78 78 67 Respiratory Rate 18 Blood Pressure 148/78 H Pulse Oximetry 97 97 04/01/21 22:00 04/01/21 23:47 04/01/21 23:57 Temperature 36.8 C Pulse Rate 73 71 Respiratory Rate 18 Blood Pressure 168/81 H Pulse Oximetry 98 98 04/02/21 00:00 04/02/21 02:00 04/02/21 04:00 Temperature 36.6 C Pulse Rate 64 59 L 67 Respiratory Rate 18 Blood Pressure 169/78 H Pulse Oximetry 98 04/02/21 05:57 04/02/21 08:00 Temperature 36.3 C L Pulse Rate 67 58 L Respiratory Rate 20 Blood Pressure 166/74 H Pulse Oximetry 97
[2021-04-02] MEDS: TAMSULOSIN HCL 0.4 MG CAPSULE PO (09:21)
[2021-04-02] MEDS: LATANOPROST 0.005% OP SOLN 2.5 ML BTL 1 DROP EACH EYE (09:21)
[2021-04-02] MEDS: ENOXAPARIN 40 MG/0.4 ML SYRINGE SUB-Q (09:21)
[2021-04-02] MEDS: CLOPIDOGREL BISULFATE 75 MG TABLET PO (09:21)
[2021-04-02] MEDS: ASPIRIN 81 MG ENTERIC TABLET PO (09:21)
[2021-04-02] MEDS: METOPROLOL SUCCINATE EXT REL 50 MG TABCR PO (09:21)
--- NOTE | 2021-04-02 14:43 | PM.IMPN ---
Progress Note: A&P Assessment and Plan (1) Elevated troponin: Code(s): R77.8 - Other specified abnormalities of plasma proteins Status: Acute (2) Generalized weakness: Code(s): R53.1 - Weakness Status: Acute (3) Uncontrolled hypertension: Code(s): I10 - Essential (primary) hypertension Status: Acute (4) Dehydration: Code(s): E86.0 - Dehydration Status: Acute (5) Lactic acidosis: Code(s): E87.2 - Acidosis Status: Acute (6) BPH (benign prostatic hyperplasia): Qualifiers: Lower urinary tract symptom presence: symptoms present Lower urinary tract symptom detail: post-void dribbling Qualified Code(s): N40.1 - Benign prostatic hyperplasia with lower urinary tract symptoms; N39.43 - Post-void dribbling Code(s): N40.0 - Benign prostatic hyperplasia without lower urinary tract symptoms Status: Acute (7) CVA (cerebral vascular accident): Code(s): I63.9 - Cerebral infarction, unspecified Status: Acute Additional Plan # Found on the floor # acute stroke: with right sided weakness and speech impairment. CT head with chronic lacunar infarcst. MRi brain with acute left pontine and parietal infarction. on aspirin, statin. add plavix. as neuro recommends. carotid with right chronically occluded LEXI and < 50% LICA. echow ith no pfo or thrombus. # Elevated tronponin: unlikely primary event. serial trops flat. likely demand ischamic from acute stroke. # HTN: on metoprolol. allow permissive hypertension # chronically occluded right internal carotid arery # lactic acidosis: resolved now. # aphasia # Dysphagia # hx of retinal detachemne tnad chorioretinal scar, glaucoma # cerebral and cerebellar atrophy noted # DVT proph: lovenox # BPH: flomax # disposition: needs pt/ot/st. needs acute rehabialiation. cm aware. pt/ot/st following. # full code Subjective Date/time seen: 04/02/21 14:43 Interval history: sitting on the chiar today, right sided weakness persists, no fever, chills. no overnight events. no nasuea, vomiting. trying to eat some this am. Review of Systems Review of Systems: All systems reviewed & are unremarkable except as noted in HPI and below Constitutional: Constitutional: Reports fatigue and Reports weakness Neurologic: Reports weakness Endocrine: Endocrine: Reports fatigue Exam Narrative: Exam Narrative: General: Chronically ill-appearing, not in acute distress HEENT: Mucous membranes are dry, edentulous in upper and lower jaw, head is normocephalic atraumatic, pupils are equal and reactive Respiratory: Clear to auscultation bilaterally, no increased work of breathing Cardiovascular: Regular rate, regular rhythm, 2+ bilateral radial pedal pulses Gastrointestinal: Soft, nontender, nondistended, positive bowel sounds Skin: Bruising to the left wrist and abrasion bruise to the right elbow Musculoskeletal: No clubbing, cyanosis or edema, Neurological: Alert and convesan,s pseech is garbled, follows simple commands, right ue and le is weak 3/5 , left ue and le 5/5 Psychiatric: Cooperative, flat affect Hematologic/lymphatic: Bruise to the left wrist, no active bleeding, no anterior cervical or submandibular lymphadenopathy Objective Data Vital Signs Vital Signs: Vital Signs - 24 hr 04/01/21 15:15 04/01/21 16:00 04/01/21 16:50 Temperature 97.0 F L Pulse Rate 70 69 69 Respiratory Rate 20 20 Blood Pressure 153/82 H Pulse Oximetry 96 96 04/01/21 18:00 04/01/21 19:54 04/01/21 20:00 Temperature 98.2 F Pulse Rate 78 78 67 Respiratory Rate 18 Blood Pressure 148/78 H Pulse Oximetry 97 97 04/01/21 22:00 04/01/21 23:47 04/01/21 23:57 Temperature 98.2 F Pulse Rate 73 71 Respiratory Rate 18 Blood Pressure 168/81 H Pulse Oximetry 98 98 04/02/21 00:00 04/02/21 02:00 04/02/21 04:00 Temperature 98 F Pulse Rate 64 59 L 67 Respiratory Rate 18 Blood Pressure 169/78 H Pul
[2021-04-02] MEDS: ATORVASTATIN 40 MG TABLET PO (21:29)
[2021-04-03] VITALS (15 sets, daily range): BP systolic 123–183; BP diastolic 66–89; PULSE 55–73; RESP 16–18; TEMP 36.1–36.6; O2SAT 95–98
[2021-04-03] MEDS: ASPIRIN 81 MG ENTERIC TABLET PO (10:49)
[2021-04-03] MEDS: TAMSULOSIN HCL 0.4 MG CAPSULE PO (10:49)
[2021-04-03] MEDS: CLOPIDOGREL BISULFATE 75 MG TABLET PO (10:50)
[2021-04-03] MEDS: ENOXAPARIN 40 MG/0.4 ML SYRINGE SUB-Q (10:50)
[2021-04-03] MEDS: LATANOPROST 0.005% OP SOLN 2.5 ML BTL 1 DROP EACH EYE (10:50)
[2021-04-03] MEDS: METOPROLOL SUCCINATE EXT REL 50 MG TABCR PO (10:50)
[2021-04-03] MEDS: lisinopriL 10 MG TABLET PO (12:14)
--- NOTE | 2021-04-03 13:20 | PM.PNCARD ---
Progress Note: A&P Assessment and Plan (1) Elevated troponin: Code(s): R77.8 - Other specified abnormalities of plasma proteins Status: Acute Assessment and Plan: 80 y/o male with no recent medical follow up who presents with fall and found to have mildly elevated troponin He has mild trop elevation that peaked at 0.2. No chest pain or ischemic changes on EKG MRI of brain revealed Acute left renetta infarction trop elevation is likely associated with the acute CVA Vs due to increase demand from lactic acidosis Vs less likely ACS 2D echo reviewed, normal LV function and obvious regional wall motion changes Start ASA and plavix per neurology. Also started statin Neurology on board for acute CVA. He is stable for discharge from cardiac standpoint. Will need follow up in 1-2 weeks (2) CVA (cerebral vascular accident): Code(s): I63.9 - Cerebral infarction, unspecified Status: Acute Assessment and Plan: Acute left renetta infarction noted on MRI Carotid US revealed occluded right internal carotid artery Continue ASA and statin Neurology on board (3) HTN (hypertension): Code(s): I10 - Essential (primary) hypertension Status: Acute Assessment and Plan: Metoprolol started per primary team. Subjective Date/time seen: 04/03/21 13:20 Interval history: Patient is sitting in the chair today, right sided weakness and aphasia persist status post CVA. Patient nonverbal but denies chest pain or dyspnea when questioned. Patient was seen and examined, chart reviewed, case discussed with nurse. Exam Const: General: no acute distress Eyes: Sclera: sclerae normal Neck: Neck: no JVD Carotids: no bruits Resp: Effort & Inspection: normal respiratory effort Auscultation: clear to auscultation bilaterally Cardio: Rate: regular rate and not tachycardic Rhythm: regular rhythm Heart sounds: no gallops, no murmurs and no rubs Skin: General skin exam: normal color Neuro: Cranial nerves: Yes Normal hearing present Speech: Expressive aphasia present Extrem: General: normal to inspection and no edema Psych: Affect: normal affect Objective Data Vital Signs Vital Signs: Vital Signs - 24 hr 04/02/21 14:00 04/02/21 16:00 04/02/21 18:00 Temperature 36.5 C Pulse Rate 70 63 69 Respiratory Rate 16 Blood Pressure 176/83 H Pulse Oximetry 97 04/02/21 19:42 04/02/21 20:00 04/02/21 22:00 Temperature 36.1 C L Pulse Rate 87 87 59 L Respiratory Rate 18 18 Blood Pressure 163/85 H Pulse Oximetry 97 97 04/03/21 00:00 04/03/21 02:00 04/03/21 04:00 Temperature 36.1 C L 36.1 C L Pulse Rate 61 62 58 L Respiratory Rate 16 18 Blood Pressure 127/80 159/81 H Pulse Oximetry 98 97 04/03/21 06:00 04/03/21 08:00 04/03/21 10:00 Temperature 36.4 C Pulse Rate 63 55 L 70 Respiratory Rate 18 Blood Pressure 173/88 H Pulse Oximetry 96 04/03/21 10:50 04/03/21 12:00 Temperature 36.4 C Pulse Rate 73 68 Respiratory Rate 18 Blood Pressure 149/74 H Pulse Oximetry 96 Intake/Output Intake/Output: Intake & Output 03/31/21 04/01/21 04/02/21 04/03/21 23:59 23:59 23:59 23:59 Intake Total 1100 2190 2140 220 Balance 1100 2190 2140 220 Meds/Results Medications: Active Medications Generic Name Dose Route Start Last Admin Trade Name Freq PRN Reason Stop Dose Admin Acetaminophen 650 mg 03/31/21 01:05 Acetaminophen 325 Mg Tablet PO Q4H PRN Mild Pain (1-3) or Fever Aspirin 81 mg 03/31/21 12:50 04/03/21 10:49 Aspirin 81 Mg Enteric Tablet PO 81 mg QAM KI Administration Atorvastatin Calcium 40 mg 03/31/21 21:00 04/02/21 21:29 Atorvastatin 40 Mg Tablet PO 40 mg KI Administration Clopidogrel Bisulfate 75 mg 04/01/21 15:15 04/03/21 10:50 Clopidogrel Bisulfate 75 Mg Tablet PO 75 mg QAM KI Administration Enoxaparin Sodium 40 mg 03/31/21 09:00 04/03/21 10:50 Enoxaparin 40 Mg/0
--- NOTE | 2021-04-03 14:33 | PM.IMPN ---
Progress Note: A&P Assessment and Plan (1) Elevated troponin: Code(s): R77.8 - Other specified abnormalities of plasma proteins Status: Acute (2) Generalized weakness: Code(s): R53.1 - Weakness Status: Acute (3) Uncontrolled hypertension: Code(s): I10 - Essential (primary) hypertension Status: Acute (4) Dehydration: Code(s): E86.0 - Dehydration Status: Acute (5) Lactic acidosis: Code(s): E87.2 - Acidosis Status: Acute (6) BPH (benign prostatic hyperplasia): Qualifiers: Lower urinary tract symptom presence: symptoms present Lower urinary tract symptom detail: post-void dribbling Qualified Code(s): N40.1 - Benign prostatic hyperplasia with lower urinary tract symptoms; N39.43 - Post-void dribbling Code(s): N40.0 - Benign prostatic hyperplasia without lower urinary tract symptoms Status: Acute (7) CVA (cerebral vascular accident): Code(s): I63.9 - Cerebral infarction, unspecified Status: Acute Additional Plan # Found on the floor # acute stroke: with right sided weakness and speech impairment. CT head with chronic lacunar infarcst. MRi brain with acute left pontine and parietal infarction. on aspirin, statin. add plavix. as neuro recommends. carotid with right chronically occluded LEXI and < 50% LICA. echow ith no pfo or thrombus. # Elevated tronponin: unlikely primary event. serial trops flat. likely demand ischamic from acute stroke. # HTN: on metoprolol. allow permissive hypertension. Will add lisinopril 10 mg a day # chronically occluded right internal carotid arery # lactic acidosis: resolved now. # aphasia # Dysphagia # hx of retinal detachemne tnad chorioretinal scar, glaucoma # cerebral and cerebellar atrophy noted # DVT proph: lovenox # BPH: flomax # disposition: needs pt/ot/st. needs acute rehabialiation. cm aware. pt/ot/st following. # full code 04/03/2021 awaiting placement add lisinopril 10 mg daily continue rest of the medication Subjective Date/time seen: 04/03/21 14:33 Interval history: No overnight events. Right-sided weakness persist. No chest pain and shortness of breath. Eating okay. Blood pressure is running high. Review of Systems Review of Systems: All systems reviewed & are unremarkable except as noted in HPI and below Constitutional: Constitutional: Reports fatigue and Reports weakness Neurologic: Reports weakness Endocrine: Endocrine: Reports fatigue Exam Narrative: Exam Narrative: General: Chronically ill-appearing, not in acute distress HEENT: Mucous membranes are dry, edentulous in upper and lower jaw, head is normocephalic atraumatic, pupils are equal and reactive Respiratory: Clear to auscultation bilaterally, no increased work of breathing Cardiovascular: Regular rate, regular rhythm, 2+ bilateral radial pedal pulses Gastrointestinal: Soft, nontender, nondistended, positive bowel sounds Skin: Bruising to the left wrist and abrasion bruise to the right elbow Musculoskeletal: No clubbing, cyanosis or edema, Neurological: Alert and convesan,s pseech is garbled, follows simple commands, right ue and le is weak 3/5 , left ue and le 5/5 Psychiatric: Cooperative, flat affect Hematologic/lymphatic: Bruise to the left wrist, no active bleeding, no anterior cervical or submandibular lymphadenopathy Objective Data Vital Signs Vital Signs: Vital Signs - 24 hr 04/02/21 16:00 04/02/21 18:00 04/02/21 19:42 Temperature 97.7 F 96.9 F L Pulse Rate 63 69 87 Respiratory Rate 16 18 Blood Pressure 176/83 H 163/85 H Pulse Oximetry 97 97 04/02/21 20:00 04/02/21 22:00 04/03/21 00:00 Temperature 96.9 F L Pulse Rate 87 59 L 61 Respiratory Rate 18 16 Blood Pressure 127/80 Pulse Oximetry 97 98 04/03/21 02:00 04/03/21 04:00 04/03/21 06:00 Temperature 97 F L Pulse Rate 62 58 L 63 Respiratory Rate 18 Blood Pressure 159/81 H Pulse Oximetry 97 04/03/21 0
[2021-04-03] MEDS: ATORVASTATIN 40 MG TABLET PO (22:31)
[2021-04-04] VITALS (7 sets, daily range): BP systolic 158–172; BP diastolic 80–89; PULSE 56–67; RESP 16–20; TEMP 36.6–36.9; O2SAT 96–97
[2021-04-04] MEDS: METOPROLOL SUCCINATE EXT REL 50 MG TABCR PO (08:34)
[2021-04-04] MEDS: ENOXAPARIN 40 MG/0.4 ML SYRINGE SUB-Q (08:35)
[2021-04-04] MEDS: ASPIRIN 81 MG ENTERIC TABLET PO (08:35)
[2021-04-04] MEDS: CLOPIDOGREL BISULFATE 75 MG TABLET PO (08:35)
[2021-04-04] MEDS: TAMSULOSIN HCL 0.4 MG CAPSULE PO (08:35)
[2021-04-04] MEDS: lisinopriL 10 MG TABLET PO (08:35)
[2021-04-04] MEDS: LATANOPROST 0.005% OP SOLN 2.5 ML BTL 1 DROP EACH EYE (08:35)
--- NOTE | 2021-04-04 09:25 | PM.DS ---
DS: Admitting Diagnosis Admitting Diagnosis Admitting Diagnosis: 1. Elevated troponin 2. Acute CVA DS: Discharge Diagnosis Discharge Diagnosis (1) Elevated troponin: Code(s): R77.8 - Other specified abnormalities of plasma proteins Status: Acute (2) Generalized weakness: Code(s): R53.1 - Weakness Status: Acute (3) Uncontrolled hypertension: Code(s): I10 - Essential (primary) hypertension Status: Acute (4) Dehydration: Code(s): E86.0 - Dehydration Status: Acute (5) Lactic acidosis: Code(s): E87.2 - Acidosis Status: Acute (6) BPH (benign prostatic hyperplasia): Qualifiers: Lower urinary tract symptom presence: symptoms present Lower urinary tract symptom detail: post-void dribbling Qualified Code(s): N40.1 - Benign prostatic hyperplasia with lower urinary tract symptoms; N39.43 - Post-void dribbling Code(s): N40.0 - Benign prostatic hyperplasia without lower urinary tract symptoms Status: Acute (7) CVA (cerebral vascular accident): Code(s): I63.9 - Cerebral infarction, unspecified Status: Acute DS: Summary Hospital Course Reason for hospitalization: 1. Elevated troponin 2. Uncontrolled hypertension 3. Acute CVA Hospital Course: 80 years old male was admitted with generalized weakness. Patient was found to have elevated troponin, uncontrolled hypertension . Workup also shows patient has acute infarction of renetta area. Patient also have carotid artery stenosis. Cardiology neurology service was consulted. Advised medical management. Physical therapy was also started. Today patient is feeling better and was transferred to [facility] bed in stable condition. Time spent discussing smoking cessation with patient: 3 to 10 minutes Status at Discharge Cognitive/behavioral status at discharge: Stable Overall status at discharge: patient is progressing back to baseline Time Spent with Patient Time attestation: Total time spent providing and/or coordinating discharge services: Time spent: Less than 30 minutes Exam Narrative: Exam Narrative: General: Chronically ill-appearing, not in acute distress HEENT: Mucous membranes are dry, edentulous in upper and lower jaw, head is normocephalic atraumatic, pupils are equal and reactive Respiratory: Clear to auscultation bilaterally, no increased work of breathing Cardiovascular: Regular rate, regular rhythm, 2+ bilateral radial pedal pulses Gastrointestinal: Soft, nontender, nondistended, positive bowel sounds Skin: Bruising to the left wrist and abrasion bruise to the right elbow Musculoskeletal: No clubbing, cyanosis or edema, Neurological: Alert and convesan,s pseech is garbled, follows simple commands, right ue and le is weak 3/5 , left ue and le 5/5 Psychiatric: Cooperative, flat affect Hematologic/lymphatic: Bruise to the left wrist, no active bleeding, no anterior cervical or submandibular lymphadenopathy Discharge Plan Discharge Attending physician on discharge: Shivam Castro Consulting providers: David Jenkins Discharging Clinician: Shivam Castro Patient Disposition: SNF Activity: as tolerated Diet: heart healthy and low sodium Stand Alone Forms: General Discharge Information Discharge Medications: New clopidogrel 75 mg Tablet 75 mg PO QAM 30 Days Qty: 30 RF: 0 lisinopril 10 mg Tablet 10 mg PO DAILY 30 Days Qty: 30 RF: 0 metoprolol succinate 50 mg Tablet Extended Release 24 Hr 50 mg PO QAM 30 Days Qty: 30 RF: 0 tamsulosin 0.4 mg Capsule 0.4 mg PO QAM 30 Days Qty: 30 RF: 0 aspirin 81 mg Tablet,Delayed Release (Dr/Ec) 81 mg PO QAM 30 Days Qty: 30 RF: 0 atorvastatin 40 mg Tablet 40 mg PO HS 30 Days Qty: 30 RF: 0 Continued latanoprost 0.005 % drops 1 drp EACH EYE DAILY RF: 0 Date of admission: 04/01/21 09:38 Primary Care Provider: Howard Pruitt Admitting Provider: Stephania Millan Attending y
--- NOTE | 2021-04-04 11:42 | PM.PNCARD ---
Progress Note: A&P Assessment and Plan (1) Elevated troponin: Code(s): R77.8 - Other specified abnormalities of plasma proteins Status: Acute Assessment and Plan: 80 y/o male with no recent medical follow up who presents with fall and found to have mildly elevated troponin He has mild trop elevation that peaked at 0.2. No chest pain or ischemic changes on EKG MRI of brain revealed Acute left renetta infarction trop elevation is likely associated with the acute CVA Vs due to increase demand from lactic acidosis Vs less likely ACS 2D echo reviewed, normal LV function and obvious regional wall motion changes Start ASA and plavix per neurology. Also started statin Neurology on board for acute CVA. He is stable for discharge from cardiac standpoint. Will need follow up in 1-2 weeks (2) CVA (cerebral vascular accident): Code(s): I63.9 - Cerebral infarction, unspecified Status: Acute Assessment and Plan: Acute left renetta infarction noted on MRI Carotid US revealed occluded right internal carotid artery Continue ASA and statin Neurology on board (3) HTN (hypertension): Code(s): I10 - Essential (primary) hypertension Status: Acute Assessment and Plan: Metoprolol started per primary team. Subjective Date/time seen: 04/04/21 11:42 Interval history: Patient is sitting in the chair today, right sided weakness and aphasia persist status post CVA. Patient nonverbal but denies chest pain or dyspnea when questioned. Patient was seen and examined, chart reviewed, case discussed with nurse. Exam Const: General: no acute distress Eyes: Sclera: sclerae normal Neck: Neck: no JVD Carotids: no bruits Resp: Effort & Inspection: normal respiratory effort Auscultation: clear to auscultation bilaterally Cardio: Rate: regular rate and not tachycardic Rhythm: regular rhythm Heart sounds: no gallops, no murmurs and no rubs Skin: General skin exam: normal color Neuro: Cranial nerves: Yes Normal hearing present Speech: Expressive aphasia present Extrem: General: normal to inspection and no edema Psych: Affect: normal affect Objective Data Vital Signs Vital Signs: Vital Signs - 24 hr 04/03/21 12:00 04/03/21 14:00 04/03/21 16:00 Temperature 36.4 C 36.5 C Pulse Rate 68 62 67 Respiratory Rate 18 17 Blood Pressure 149/74 H 183/84 H Pulse Oximetry 96 96 04/03/21 18:00 04/03/21 19:57 04/03/21 20:00 Temperature 36.6 C Pulse Rate 68 68 68 Respiratory Rate 16 16 Blood Pressure 123/66 Pulse Oximetry 95 95 04/03/21 22:00 04/03/21 23:26 04/04/21 00:00 Temperature 36.1 C L Pulse Rate 64 66 60 Respiratory Rate 16 16 Blood Pressure 156/89 H Pulse Oximetry 97 97 04/04/21 01:43 04/04/21 03:52 04/04/21 04:00 Temperature 36.6 C Pulse Rate 56 L 63 63 Respiratory Rate 18 18 Blood Pressure 172/89 H Pulse Oximetry 97 97 04/04/21 06:00 04/04/21 08:00 04/04/21 08:34 Temperature 36.9 C Pulse Rate 67 56 L 61 Respiratory Rate 20 Blood Pressure 158/80 H Pulse Oximetry 96 Intake/Output Intake/Output: Intake & Output 04/01/21 04/02/21 04/03/21 04/04/21 23:59 23:59 23:59 23:59 Intake Total 2190 2140 660 120 Balance 2190 2140 660 120 Meds/Results Medications: Active Medications Generic Name Dose Route Start Last Admin Trade Name Freq PRN Reason Stop Dose Admin Acetaminophen 650 mg 03/31/21 01:05 Acetaminophen 325 Mg Tablet PO Q4H PRN Mild Pain (1-3) or Fever Aspirin 81 mg 03/31/21 12:50 04/04/21 08:35 Aspirin 81 Mg Enteric Tablet PO 81 mg QAM KI Administration Atorvastatin Calcium 40 mg 03/31/21 21:00 04/03/21 22:31 Atorvastatin 40 Mg Tablet PO 40 mg HS KI Administration Clopidogrel Bisulfate 75 mg 04/01/21 15:15 04/04/21 08:35 Clopidogrel Bisulfate 75 Mg Tablet PO 75 mg QAM KI Administration Enoxaparin Sodium 40 mg 03/31/21 09:00 04/04/21 08:3
== END 2021-04-04 12:23 | disposition swing bed (61) | DRG 65 ==
PROVIDERS: Internal Medicine; Admitting Provider Internal Medicine; PCP Emergency Medicine; Referring Provider Internal Medicine; Visit Provider Internal Medicine
DX: I63.9 Cerebral infarction, unspecified (principal); E87.2 Acidosis; G81.91 Hemiplegia, unspecified affecting right dominant side; I24.8 Other forms of acute ischemic heart disease; N40.1 Benign prostatic hyperplasia with lower urinary tract symptoms; R47.01 Aphasia; E86.0 Dehydration; I10 Essential (primary) hypertension; Z86.73 Personal history of transient ischemic attack (TIA), and cerebral infarction without residual deficits; Z87.891 Personal history of nicotine dependence; R13.10 Dysphagia, unspecified
CPT/HCPCS: 36415; 70551; 80048; 80061; 83605; 84484; 85025; 85055; 92526; 92610; 93306; 93880; 96360; 96361; 96372; 97110; 97161; 97166; 97530; 97535; A9270; G0378; J1650; J7030

== ENCOUNTER 2021-04-04 12:55 | Inpatient (IN) | payer MEDICARE, SELFPAY ==
--- NOTE | ~2021-04-04 | XR_ITS ---
EXAMINATION: XR barium swallow modified DATE: 04/13/2021 09:00 INDICATION: Dysphagia TECHNIQUE: Modified barium esophagram was performed by myself to administered fluoroscopy, in conjun ction with speech pathologist who administered barium in varying consistencies as per speech patholog ist documentation. This was recorded on tape. A single fluoroscopic spot image was recorded. The DAP for this procedure was 2.299 Gycm2. Fluoroscopy exposure time was 3.7 minutes. FINDINGS: Oral stage: Adequate function. Pharyngeal phase: Adequate function. Laryngeal penetration: None. Aspiration: None. Laryngeal sensitivity: Present. IMPRESSION: Unremarkable modified barium swallow with consistencies tested by the speech pathologist. Please refer to speech pathologist findings and specific feeding recommendations. Reviewed, dictated and finalized at location B. IMPRESSION: Unremarkable modified barium swallow with consistencies tested by ayo singleton speech pathologist. Please refer to speech pathologist findings and specific feeding recommendations.
--- NOTE | 2021-04-04 13:01 | WPDPN ---
Progress Note: A&P Assessment and Plan (1) Generalized weakness: Code(s): R53.1 - Weakness <MONA Corral - Last Filed: 04/04/21 14:02> Status: Acute <MONA Corral - Last Filed: 04/04/21 14:02> Assessment and Plan: ? Exhibit tolerance during physical activity as evidenced by a normal fluctuation of vital signs during physical activity. ? Patient will be ability to perform required activities of daily living. ? Provide appropriate nutrition for healing and strength. ? Use appropriate to prevent falls. ? Continue physical therapy/occupational therapy. <MONA Corral - Last Filed: 04/04/21 14:02> (2) HTN (hypertension): Code(s): I10 - Essential (primary) hypertension <MONA Corral - Last Filed: 04/04/21 14:02> Status: Acute <Hunter Anders MONA - Last Filed: 04/04/21 14:02> Assessment and Plan: Continue metoprolol. Allow hypertension Vital signs as ordered Will adjust medication as needed <MONA Corral - Last Filed: 04/04/21 14:02> (3) CVA (cerebral vascular accident): Code(s): I63.9 - Cerebral infarction, unspecified <Hunter Andres MONA - Last Filed: 04/04/21 14:02> Status: Acute <MONA Corral - Last Filed: 04/04/21 14:02> Assessment and Plan: Continue aspirin, statin and Plavix Right-sided hemiplegia Carotid Doppler indicates 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 MRI indicates Acute left renetta infarction. Punctate acute left parietal lobe infarction Patient with dysphagia will consult speech therapy Continue PT OT <Hunter Anders MONA - Last Filed: 04/04/21 14:02> (4) BPH (benign prostatic hyperplasia): Qualifiers: Lower urinary tract symptom detail: post-void dribbling Lower urinary tract symptom presence: symptoms present Qualified Code(s): N40.1 - Benign prostatic hyperplasia with lower urinary tract symptoms; N39.43 - Post-void dribbling <MONA Corral - Last Filed: 04/04/21 14:02> Code(s): N40.0 - Benign prostatic hyperplasia without lower urinary tract symptoms <MONA Corral - Last Filed: 04/04/21 14:02> Status: Acute <MONA Corral - Last Filed: 04/04/21 14:02> Assessment and Plan: Continue Flomax <MONA Corral - Last Filed: 04/04/21 14:02> (5) Elevated troponin: Code(s): R77.8 - Other specified abnormalities of plasma proteins <MONA Corral - Last Filed: 04/04/21 14:02> Status: Acute <MONA Corral - Last Filed: 04/04/21 14:02> Assessment and Plan: likely demand ischamic from acute stroke. Trop 0.212>0.191>0.161 Will need follow up in 1-2 weeks with cardiology <MONA Corral - Last Filed: 04/04/21 14:02> Review of Systems Review of Systems: Narrative: A 14 organ system Review of Systems was performed and pertinent positives included in the HPI, otherwise remaining ROS is negative. <MONA Corral - Last Filed: 04/04/21 14:02> Exam Narrative: Exam Narrative: GENERAL: This is a well-nourished, well-developed patient, in no apparent distress. HEAD: normocephalic, atraumatic. EYES: PERRL. Sclera clear/white. Vision is grossly intact. EARS: External ears normal, auditory canals clear and without drainage, TMs normal without perforation. Hearing grossly intact. NOSE: External nose normal with no obvious nasal discharge, nares without redness, no rhinorrhea. THROAT: Mucous membranes moist, posterior pharynx clear. NECK: Neck supple, non-tender without lymphadenopathy, masses or thyromegaly. CARDIOVASCULAR: Regular rate and rhythm without murmurs, gallops, or rubs. RESPIRATORY: Clear to auscultation. Breath sounds equal bilaterally. No wheezes, rales, or rhonchi. GASTROINTE
--- NOTE | 2021-04-04 14:33 | PC.NURSE ---
Pt admitted as a swing bed from [facility]. Pt is S/P Stroke with right sided weakness, garbled speech and impaired swallowing. Pt transferred by ambulance. Pt can answer yes or no to questions. He is incontenant of both bladder and bowel.
[2021-04-04 14:36] VITALS: BMI 22.8
--- NOTE | 2021-04-04 15:10 | PM.IMHP ---
H&P: HPI History of Present Illness Date/Time: 04/04/21 15:10 80-year-old man admitted to this hospital as a swing bed for rehabilitation after a right-sided stroke which left him with some her right hemiparesis. Patient was not talking well and appeared to be weak when presenting to the emergency department on the 30 of March where he was found to have troponin is 3 times the upper limit of normal. Patient was also noted to Have lactic acidosis in addition to be incontinent and aphasic. Patient was transferred [facility] where he was found to have acute left renetta infarction and punctate acute left parietal lobe infarction on MRI. Elevated troponins were thought to be due to his untreated hypertension. 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 He has 1 son who lives in [place]. He has a nephew that lives nearby. He is a former smoker he quit smoking several weeks ago. Prior to quitting he smoked 1 pack per day from a young age. He denies any alcohol use. Code status: DNR Surrogate decision maker: Son Smoking packs per day: 1 Smoking cigarettes per day: 20.0 Years smoked: 60 Smoking pack-years: 60.00 Smoking status: Former smoker Tobacco type: cigarettes Second hand tobacco smoke exposure: No Smoking end date: 03/16/21 Alcohol intake: never Substance use: never Additional living arrangements comments: lives alone, family see after him Gender identity (if verbalized by the patient): Male Sexual Orientation (if Verbalized by the Patient): Straight or Heterosexual Spiritual care concerns: No Meds Home Medications and Allergies Home Medications Medication Instructions Recorded Confirmed Type latanoprost 1 drp EACH EYE DAILY 03/31/21 04/04/21 History aspirin 81 mg PO QAM 30 Days #30 tablet 04/04/21 04/04/21 Rx atorvastatin 40 mg PO HS 30 Days #30 tablet 04/04/21 04/04/21 Rx clopidogrel 75 mg PO QAM 30 Days #30 tablet 04/04/21 04/04/21 Rx lisinopril 10 mg PO DAILY 30 Days #30 tablet 04/04/21 04/04/21 Rx metoprolol succinate 50 mg PO QAM 30 Days #30 tablet 04/04/21 04/04/21 Rx tamsulosin 0.4 mg PO QAM 30 Days #30 cap 04/04/21 04/04/21 Rx Allergies Allergy/AdvReac Type Severity Reaction Status Date / Time No Known Allergies Allergy Verified 03/30/21 18:01 Exam Const: General: cooperative, healthy appearing, comfortable, no acute distress, alert, awake and Physically active Nutritional Appearance: average body habitus Limitations: other limitations ( aphasia) HENMT: Head: normocephalic and atraumatic Face and sinus: normal facial exam ( except for some mild right-sided paresis) Mouth: Yes Normal oral and palatal mucosa present Throat: posterior oropharynx normal and uvula midline Eyes: General: appearance normal, both eyes and all related structures Conjunctivae: conjunctivae normal Sclera: sclerae norm
[2021-04-04 16:45] VITALS: BP 163/79; PULSE 67; RESP 18; TEMP 37; O2SAT 95
[2021-04-04] MEDS: ATORVASTATIN 40 MG TABLET PO (22:03)
[2021-04-05] VITALS: BP 132/94; PULSE 66; RESP 16; TEMP 37; O2SAT 95
[2021-04-05 08:00] VITALS: BP 142/89; PULSE 74; RESP 18; TEMP 36.9; O2SAT 95
[2021-04-05 09:15] VITALS: PULSE 80
[2021-04-05] MEDS: ASPIRIN 81 MG ENTERIC TABLET PO (09:15)
[2021-04-05] MEDS: CLOPIDOGREL BISULFATE 75 MG TABLET PO (09:15)
[2021-04-05] MEDS: TAMSULOSIN HCL 0.4 MG CAPSULE PO (09:15)
[2021-04-05] MEDS: LATANOPROST 0.005% OP SOLN 2.5 ML BTL 1 DROP EACH EYE (09:15)
[2021-04-05] MEDS: METOPROLOL SUCCINATE EXT REL 50 MG TABCR PO (09:15)
[2021-04-05] MEDS: lisinopriL 10 MG TABLET PO (09:15)
--- NOTE | 2021-04-05 11:31 | PC.NURSE ---
Bed check complete, incontinent of urine, changed attends, able to turn to right well, needs assist to turn to left side, deidre care provided, tolerated well
--- NOTE | 2021-04-05 14:53 | PCOTNOTE ---
On 04/05/21, the student, [Teri Mcintosh ], provided care and completed [facility] documentation on this patient. I have reviewed the student's documentation and agree with the findings.
[2021-04-05 15:49] VITALS: BP 128/48; PULSE 44; RESP 20; TEMP 36.1; O2SAT 99
--- NOTE | 2021-04-05 18:19 | PC.NURSE ---
Assisted with fluid intake.
[2021-04-05] MEDS: ATORVASTATIN 40 MG TABLET PO (21:14)
[2021-04-06] VITALS: BP 134/90; PULSE 63; RESP 16; TEMP 37.1; O2SAT 98
[2021-04-06 08:00] VITALS: BP 114/70; PULSE 80; RESP 20; TEMP 36.1; O2SAT 95
[2021-04-06 08:58] VITALS: PULSE 78
[2021-04-06] MEDS: METOPROLOL SUCCINATE EXT REL 50 MG TABCR PO (08:58)
[2021-04-06] MEDS: LATANOPROST 0.005% OP SOLN 2.5 ML BTL 1 DROP EACH EYE (08:58)
[2021-04-06] MEDS: TAMSULOSIN HCL 0.4 MG CAPSULE PO (08:58)
[2021-04-06] MEDS: ASPIRIN 81 MG ENTERIC TABLET PO (08:58)
[2021-04-06] MEDS: CLOPIDOGREL BISULFATE 75 MG TABLET PO (08:59)
[2021-04-06] MEDS: lisinopriL 10 MG TABLET PO (08:59)
--- NOTE | 2021-04-06 10:39 | PCOTNOTE ---
On 04/06/21, the student, [Teri Mcintosh ], provided care and completed [facility] documentation on this patient. I have reviewed the student's documentation and agree with the findings.
[2021-04-06 15:48] VITALS: BP 112/64; PULSE 78; RESP 20; TEMP 36.6; O2SAT 96
[2021-04-06] MEDS: ATORVASTATIN 40 MG TABLET PO (22:14)
[2021-04-07] VITALS: BP 156/89; PULSE 58; RESP 18; TEMP 37.1; O2SAT 95
[2021-04-07 08:00] VITALS: BP 102/62; PULSE 58; RESP 18; TEMP 36.6; O2SAT 97
[2021-04-07 08:43] VITALS: PULSE 78
[2021-04-07] MEDS: METOPROLOL SUCCINATE EXT REL 50 MG TABCR PO (08:43)
[2021-04-07] MEDS: ASPIRIN 81 MG ENTERIC TABLET PO (08:43)
[2021-04-07] MEDS: TAMSULOSIN HCL 0.4 MG CAPSULE PO (08:43)
[2021-04-07] MEDS: CLOPIDOGREL BISULFATE 75 MG TABLET PO (08:44)
[2021-04-07] MEDS: lisinopriL 10 MG TABLET PO (08:44)
[2021-04-07] MEDS: LATANOPROST 0.005% OP SOLN 2.5 ML BTL 1 DROP EACH EYE (08:44)
[2021-04-07 16:00] VITALS: BP 112/64; PULSE 52; RESP 20; TEMP 36.3; O2SAT 96
[2021-04-07] MEDS: ATORVASTATIN 40 MG TABLET PO (21:18)
[2021-04-08] VITALS: BP 150/72; PULSE 60; RESP 20; TEMP 36.8; O2SAT 96
[2021-04-08 07:54] VITALS: BP 127/68; PULSE 61; RESP 18; TEMP 36.8; O2SAT 94
[2021-04-08 08:49] VITALS: PULSE 61
[2021-04-08] MEDS: ASPIRIN 81 MG ENTERIC TABLET PO (08:49)
[2021-04-08] MEDS: METOPROLOL SUCCINATE EXT REL 50 MG TABCR PO (08:49)
[2021-04-08] MEDS: CLOPIDOGREL BISULFATE 75 MG TABLET PO (08:49)
[2021-04-08] MEDS: lisinopriL 10 MG TABLET PO (08:49)
[2021-04-08] MEDS: TAMSULOSIN HCL 0.4 MG CAPSULE PO (08:49)
[2021-04-08] MEDS: LATANOPROST 0.005% OP SOLN 2.5 ML BTL 1 DROP EACH EYE (08:49)
[2021-04-08 16:00] VITALS: BP 135/66; PULSE 60; RESP 18; TEMP 37.3; O2SAT 97
[2021-04-08 20:00] VITALS: O2SAT 97
[2021-04-08] MEDS: ATORVASTATIN 40 MG TABLET PO (20:22)
[2021-04-09] VITALS: BP 148/73; PULSE 56; RESP 14; TEMP 37.3; O2SAT 94
[2021-04-09 05:37] LABS: Mean Corpuscular HGB Conc 32.5 g/dL (32.0-36.0); Mean Corpuscular Hemoglobin 29.8 pg (27.0-31.0); Mean Corpuscular Volume 91.7 fL (78.0-102.0); Mean Platelet Volume 9.5 fl (8.7-11.0); Platelet Count Result 196 K/mm3 (150-420); Red Blood Count 4.36 M/mm3 (4.70-6.10); Red Cell Distribution Width 12.5 % (11.6-14.4); White Blood Count 6.6 K/mm3 (4.8-10.8)
[2021-04-09 05:45] LABS: Anion Gap 11 mmol/L (8-16); Blood Urea Nitrogen 24 mg/dL (7-18); Calcium 8.5 mg/dL (8.5-10.1); Carbon Dioxide 25 mmol/L (21-32); Chloride 103 mmol/L (98-108); Estimated CRCL calculation 47 ml/min; Estimated Glomerular Filt Rate > 60; Glucose 93 mg/dL (70-99); Osmolality Calculated 292 mOsm/kg (285-295); Sodium 139 mmol/L (136-145)
--- NOTE | 2021-04-09 07:15 | PC.NURSE ---
bedside change of shift report completed. Patient sleeping.
[2021-04-09 07:25] VITALS: BP 154/70; PULSE 56; RESP 14; TEMP 36.5; O2SAT 95
[2021-04-09] MEDS: CLOPIDOGREL BISULFATE 75 MG TABLET PO (08:18)
[2021-04-09] MEDS: METOPROLOL SUCCINATE EXT REL 50 MG TABCR PO (08:20)
[2021-04-09] MEDS: lisinopriL 10 MG TABLET PO (08:20)
[2021-04-09] MEDS: LATANOPROST 0.005% OP SOLN 2.5 ML BTL 1 DROP EACH EYE (08:22)
[2021-04-09] MEDS: TAMSULOSIN HCL 0.4 MG CAPSULE PO (08:24)
[2021-04-09] MEDS: ASPIRIN 81 MG ENTERIC TABLET PO (08:24)
--- NOTE | 2021-04-09 11:10 | PC.NURSE ---
Patient is sleeping.
--- NOTE | 2021-04-09 11:40 | P.PNIM_ITS ---
Progress Note: A&P Assessment and Plan (1) Generalized weakness: Code(s): R53.1 - Weakness <Shayne Masterson HOME HEALTH CARE RESPIRATORY THERAPIST-C - Last Filed: 04/09/21 12:03> Status: Acute <CHRIS Tang - Last Filed: 04/09/21 12:03> Assessment and Plan: ? Exhibit tolerance during physical activity as evidenced by a normal fluctuation of vital signs during physical activity. ? Patient will be ability to perform required activities of daily living. ? Provide appropriate nutrition for healing and strength. ? Use appropriate to prevent falls. ? Continue physical therapy/occupational therapy. 04/09/[address], Pt is slowly talking better and moving right side a little more, slow progress, doing better with drinking <Shayne Masterson HOME HEALTH CARE RESPIRATORY THERAPIST-C - Last Filed: 04/09/21 12:03> (2) HTN (hypertension): Code(s): I10 - Essential (primary) hypertension <Shayne Masterson HOME HEALTH CARE RESPIRATORY THERAPIST-C - Last Filed: 04/09/21 12:03> Status: Acute <Shayne Masterson APN-C - Last Filed: 04/09/21 12:03> Assessment and Plan: * Continue metoprolol. Allow hypertension * Vital signs as ordered * Will adjust medication as needed 04/09/2021 VSS, low grade temp 99.2`F, no changes needed at this time, continue to monitor <Shayne Masterson HOME HEALTH CARE RESPIRATORY THERAPIST-C - Last Filed: 04/09/21 12:03> (3) CVA (cerebral vascular accident): Code(s): I63.9 - Cerebral infarction, unspecified <Shayne Masterson HOME HEALTH CARE RESPIRATORY THERAPIST-C - Last Filed: 04/09/21 12:03> Status: Acute <Shayne Masterson HOME HEALTH CARE RESPIRATORY THERAPIST-Ronald - Last Filed: 04/09/21 12:03> Assessment and Plan: * Continue aspirin, statin and Plavix * Right-sided hemiplegia * Carotid Doppler indicates 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 * MRI indicates Acute left renetta infarction. Punctate acute left parietal lobe infarction * Patient with dysphagia will consult speech therapy * Continue PT OT 04/09/2021 Continue ASA, Plavix, Pt working with ST/PT/OT and making slow progress at this time <Shayne FortuneWOODY BradyC - Last Filed: 04/09/21 12:03> (4) BPH (benign prostatic hyperplasia): Qualifiers: Lower urinary tract symptom detail: post-void dribbling Lower urinary tract symptom presence: symptoms present Qualified Code(s): N40.1 - Benign prostatic hyperplasia with lower urinary tract symptoms; N39.43 - Post- void dribbling <Shayne FortuneWOODY BradyC - Last Filed: 04/09/21 12:03> Code(s): N40.0 - Benign prostatic hyperplasia without lower urinary tract symptoms <Shayne FortuneRodolfo Masterson APN-C - Last Filed: 04/09/21 12:03> Status: Acute <Shayne Rosas CHRIS Masterson - Last Filed: 04/09/21 12:03> Assessment and Plan: * Continue Flomax <Shayne FortuneWOODY BradyC - Last Filed: 04/09/21 12:03> (5) Elevated troponin: Code(s): R77.8 - Other specified abnormalities of plasma proteins <Shayne FortuneWOODY BradyC - Last Filed: 04/09/21 12:03> Status: Acute <Shayne Rosas CHRIS Masterson - Last Filed: 04/09/21 12:03> Assessment and Plan: * likely demand ischemic from acute stroke. * Trop 0.212>0.191>0.161 * Will need follow up in 1-2 weeks with cardiology 04/09/2021 Pt denies any CP or SOB <Shayne FortuneCHRIS Brady - Last Filed: 04/09/21 12:03> Subjective Date/time seen: 04/09/21 11:[address] this AM during rounding. Pt demonstrated some movement of the Right arm, minimal movement of fingers, movement of leg but unable to move toes. Pt denies any pain, breathing problems. States he is working to get better. Per ST his speech has improved a little. <
--- NOTE | 2021-04-09 11:40 | PM.IMPN ---
Progress Note: A&P Assessment and Plan (1) Generalized weakness: Code(s): R53.1 - Weakness <Shayne MastersonCHRIS - Last Filed: 04/09/21 12:03> Status: Acute <Shayne MastersonCHRIS - Last Filed: 04/09/21 12:03> Assessment and Plan: ? Exhibit tolerance during physical activity as evidenced by a normal fluctuation of vital signs during physical activity. ? Patient will be ability to perform required activities of daily living. ? Provide appropriate nutrition for healing and strength. ? Use appropriate to prevent falls. ? Continue physical therapy/occupational therapy. 04/09/[address], Pt is slowly talking better and moving right side a little more, slow progress, doing better with drinking <Shayne MastersonDARLIN-C - Last Filed: 04/09/21 12:03> (2) HTN (hypertension): Code(s): I10 - Essential (primary) hypertension <Shayne GutiérrezCHRIS trinidad - Last Filed: 04/09/21 12:03> Status: Acute <Shayne MastersonDARLIN-C - Last Filed: 04/09/21 12:03> Assessment and Plan: Continue metoprolol. 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 MRI indicates Acute left renetta infarction. Punctate acute left parietal lobe infarction Patient with dysphagia will consult speech therapy Continue PT OT 04/09/2021 Continue ASA, Plavix, Pt working with ST/PT/OT and making slow progress at this time <CHRIS Tang - Last Filed: 04/09/21 12:03> (4) BPH (benign prostatic hyperplasia): Qualifiers: Lower urinary tract symptom detail: post-void dribbling Lower urinary tract symptom presence: symptoms present Qualified Code(s): N40.1 - Benign prostatic hyperplasia with lower urinary tract symptoms; N39.43 - Post-void dribbling <Shayne DevikaCHRIS Brady - Last Filed: 04/09/21 12:03> Code(s): N40.0 - Benign prostatic hyperplasia without lower urinary tract symptoms <Shayne FortuneWOODY BradyC - Last Filed: 04/09/21 12:03> Status: Acute <Shayne FortuneCHRIS Brady - Last Filed: 04/09/21 12:03> Assessment and Plan: Continue Flomax <Shayne FortuneCHRIS Brady - Last Filed: 04/09/21 12:03> (5) Elevated troponin: Code(s): R77.8 - Other specified abnormalities of plasma proteins <Shayne FortuneWOODY BradyC - Last Filed: 04/09/21 12:03> Status: Acute <Shayne FortuneCHRIS Brady - Last Filed: 04/09/21 12:03> Assessment and Plan: likely demand ischemic from acute stroke. Trop 0.212>0.191>0.161 Will need follow up in 1-2 weeks with cardiology 04/09/2021 Pt denies any CP or SOB <CHRIS Tang - Last Filed: 04/09/21 12:03> Subjective Date/time seen: 04/09/21 11:[address] this AM during rounding. Pt demonstrated some movement of the Right arm, minimal movement of fingers, movement of leg but unable to move toes. Pt denies any pain, breathing problems. States he is working to get better. Per ST his speech has improved a little. <CHRIS Tang - Last Filed: 04/09/21 12:03> Review of Systems Constitutional: Constitutional: Reports no additional constitutional complaints and Denies body ache(s) <CHRIS Tang - Last Filed: 04/09/21 12:03> Cardiovascular: Cardiovascular: Reports no additional cardiovascular complaints and Denies chest pa
[2021-04-09 16:00] VITALS: BP 113/53; PULSE 60; RESP 18; TEMP 36.6; O2SAT 95
[2021-04-09] MEDS: ATORVASTATIN 40 MG TABLET PO (21:04)
[2021-04-09 23:35] VITALS: BP 145/75; PULSE 62; RESP 16; TEMP 36.6; O2SAT 97
[2021-04-10 08:00] VITALS: BP 109/75; PULSE 65; RESP 18; TEMP 36.8; O2SAT 93
[2021-04-10] MEDS: ASPIRIN 81 MG ENTERIC TABLET PO (08:17)
[2021-04-10 08:18] VITALS: PULSE 65
[2021-04-10] MEDS: CLOPIDOGREL BISULFATE 75 MG TABLET PO (08:18)
[2021-04-10] MEDS: TAMSULOSIN HCL 0.4 MG CAPSULE PO (08:18)
[2021-04-10] MEDS: METOPROLOL SUCCINATE EXT REL 50 MG TABCR PO (08:18)
[2021-04-10] MEDS: lisinopriL 10 MG TABLET PO (08:19)
[2021-04-10] MEDS: LATANOPROST 0.005% OP SOLN 2.5 ML BTL 1 DROP EACH EYE (08:19)
[2021-04-10 15:27] VITALS: BP 122/71; PULSE 63; RESP 18; TEMP 36.8; O2SAT 95
--- NOTE | 2021-04-10 17:02 | PC.NURSE ---
Incontinent of pastey collier stool and urine, cleansed and wants to stay in bed for dinner, clean dry linens to bed and on patient
--- NOTE | 2021-04-10 17:42 | PC.NURSE ---
ate well fed self, denies needs, assisted to wash face and hands
[2021-04-10] MEDS: ATORVASTATIN 40 MG TABLET PO (20:39)
[2021-04-11 00:46] VITALS: BP 142/74; PULSE 68; RESP 18; TEMP 37.1; O2SAT 96
[2021-04-11 08:00] VITALS: BP 130/74; PULSE 62; RESP 16; TEMP 36.8; O2SAT 94
[2021-04-11] MEDS: TAMSULOSIN HCL 0.4 MG CAPSULE PO (09:13)
[2021-04-11] MEDS: ASPIRIN 81 MG ENTERIC TABLET PO (09:13)
[2021-04-11 09:14] VITALS: PULSE 64
[2021-04-11] MEDS: lisinopriL 10 MG TABLET PO (09:14)
[2021-04-11] MEDS: METOPROLOL SUCCINATE EXT REL 50 MG TABCR PO (09:14)
[2021-04-11] MEDS: CLOPIDOGREL BISULFATE 75 MG TABLET PO (09:14)
[2021-04-11] MEDS: LATANOPROST 0.005% OP SOLN 2.5 ML BTL 1 DROP EACH EYE (09:14)
--- NOTE | 2021-04-11 13:28 | PC.NURSE ---
[facility] here to work with pt
[2021-04-11 16:00] VITALS: BP 139/68; PULSE 58; RESP 20; TEMP 36.9; O2SAT 92
[2021-04-11] MEDS: ATORVASTATIN 40 MG TABLET PO (20:46)
[2021-04-12] VITALS: BP 108/62; PULSE 64; RESP 18; TEMP 37.2; O2SAT 91
[2021-04-12 07:50] VITALS: BP 106/67; PULSE 62; RESP 18; TEMP 37.1; O2SAT 93
[2021-04-12] MEDS: ASPIRIN 81 MG ENTERIC TABLET PO (09:28)
[2021-04-12 09:29] VITALS: PULSE 62
[2021-04-12] MEDS: TAMSULOSIN HCL 0.4 MG CAPSULE PO (09:29)
[2021-04-12] MEDS: LATANOPROST 0.005% OP SOLN 2.5 ML BTL 1 DROP EACH EYE (09:29)
[2021-04-12] MEDS: METOPROLOL SUCCINATE EXT REL 50 MG TABCR PO (09:29)
[2021-04-12] MEDS: lisinopriL 10 MG TABLET PO (09:29)
[2021-04-12] MEDS: CLOPIDOGREL BISULFATE 75 MG TABLET PO (09:29)
[2021-04-12 15:50] VITALS: BP 136/62; PULSE 69; RESP 18; TEMP 37.1; O2SAT 94
[2021-04-12] MEDS: ATORVASTATIN 40 MG TABLET PO (21:13)
[2021-04-13] VITALS: BP 144/93; PULSE 61; RESP 16; TEMP 36.9; O2SAT 96
[2021-04-13 07:45] VITALS: BP 124/77; PULSE 84; RESP 18; TEMP 36.9; O2SAT 96
--- NOTE | 2021-04-13 08:54 | P.PN_ITS ---
Progress Note: A&P Assessment and Plan (1) Generalized weakness: Code(s): R53.1 - Weakness <MONA Corral - Last Filed: 04/13/21 09:01> Status: Acute <MONA Corral - Last Filed: 04/13/21 09:01> Assessment and Plan: ? Exhibit tolerance during physical activity as evidenced by a normal fluctuation of vital signs during physical activity. ? Patient will be ability to perform required activities of daily living. ? Provide appropriate nutrition for healing and strength. ? Use appropriate to prevent falls. ? Continue physical therapy/occupational therapy. 04/09/[address], Pt is slowly talking better and moving right side a little more, slow progress, doing better with drinking <MONA Corral - Last Filed: 04/13/21 09:01> (2) HTN (hypertension): Code(s): I10 - Essential (primary) hypertension <Hunter Anders MONA - Last Filed: 04/13/21 09:01> Status: Acute <MONA Corral - Last Filed: 04/13/21 09:01> Assessment and Plan: * Continue metoprolol. 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 * MRI indicates Acute left renetta infarction. Punctate acute left parietal lobe infarction * Patient with dysphagia will consult speech therapy * Continue PT OT 04/09/2021 Continue ASA, Plavix, Pt working with ST/PT/OT and making slow progress at this time <Hunter CatherineFRITZ MichaelC - Last Filed: 04/13/21 09:01> (4) BPH (benign prostatic hyperplasia): Qualifiers: Lower urinary tract symptom detail: post-void dribbling Lower urinary tract symptom presence: symptoms present Qualified Code(s): N40.1 - Benign prostatic hyperplasia with lower urinary tract symptoms; N39.43 - Post- void dribbling <Hunter CatherineFRITZ MichaelC - Last Filed: 04/13/21 09:01> Code(s): N40.0 - Benign prostatic hyperplasia without lower urinary tract symptoms <Hunter CatherineBARNEY Michael-C - Last Filed: 04/13/21 09:01> Status: Acute <Hunter AlexanderMONA Michael - Last Filed: 04/13/21 09:01> Assessment and Plan: * Continue Flomax <YazanBARNEY PerkinsBarneyRonald - Last Filed: 04/13/21 09:01> (5) Elevated troponin: Code(s): R77.8 - Other specified abnormalities of plasma proteins <Hunter CatherineFRITZ MichaelC - Last Filed: 04/13/21 09:01> Status: Acute <Yazanni CatherineBARNEY MichaelBarneyRonald - Last Filed: 04/13/21 09:01> Assessment and Plan: * likely demand ischemic from acute stroke. * Trop 0.212>0.191>0.161 * Will need follow up in 1-2 weeks with cardiology 04/09/2021 Pt denies any CP or SOB <FRITZ CorralC - Last Filed: 04/13/21 09:01> (6) Dysphagia: Code(s): R13.10 - Dysphagia, unspecified <Hunter CatherineBARNEY Michael-C - Last Filed: 04/13/21 09:01> Status: Acute <Hunter CatherineMONA Michael - Last Filed: 04/13/21 09:01> Assessment and Plan: * Barium swallow eval completed today patient is to hav
--- NOTE | 2021-04-13 08:54 | WPDPN ---
Progress Note: A&P Assessment and Plan (1) Generalized weakness: Code(s): R53.1 - Weakness <Hunter Anders MONA - Last Filed: 04/13/21 09:01> Status: Acute <Hunter Anders MONA - Last Filed: 04/13/21 09:01> Assessment and Plan: ? Exhibit tolerance during physical activity as evidenced by a normal fluctuation of vital signs during physical activity. ? Patient will be ability to perform required activities of daily living. ? Provide appropriate nutrition for healing and strength. ? Use appropriate to prevent falls. ? Continue physical therapy/occupational therapy. 04/09/[address], Pt is slowly talking better and moving right side a little more, slow progress, doing better with drinking <Hunter Anders MONA - Last Filed: 04/13/21 09:01> (2) HTN (hypertension): Code(s): I10 - Essential (primary) hypertension <Hunter Anders MONA - Last Filed: 04/13/21 09:01> Status: Acute <Hunter Anders MONA - Last Filed: 04/13/21 09:01> Assessment and Plan: Continue metoprolol. 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 MRI indicates Acute left renetta infarction. Punctate acute left parietal lobe infarction Patient with dysphagia will consult speech therapy Continue PT OT 04/09/2021 Continue ASA, Plavix, Pt working with ST/PT/OT and making slow progress at this time <MONA Corral - Last Filed: 04/13/21 09:01> (4) BPH (benign prostatic hyperplasia): Qualifiers: Lower urinary tract symptom detail: post-void dribbling Lower urinary tract symptom presence: symptoms present Qualified Code(s): N40.1 - Benign prostatic hyperplasia with lower urinary tract symptoms; N39.43 - Post-void dribbling <MONA Corral - Last Filed: 04/13/21 09:01> Code(s): N40.0 - Benign prostatic hyperplasia without lower urinary tract symptoms <FRITZ CorralC - Last Filed: 04/13/21 09:01> Status: Acute <MONA Corral - Last Filed: 04/13/21 09:01> Assessment and Plan: Continue Flomax <MONA Corral - Last Filed: 04/13/21 09:01> (5) Elevated troponin: Code(s): R77.8 - Other specified abnormalities of plasma proteins <MONA Corral - Last Filed: 04/13/21 09:01> Status: Acute <MONA Corral - Last Filed: 04/13/21 09:01> Assessment and Plan: likely demand ischemic from acute stroke. Trop 0.212>0.191>0.161 Will need follow up in 1-2 weeks with cardiology 04/09/2021 Pt denies any CP or SOB <MONA Corral - Last Filed: 04/13/21 09:01> (6) Dysphagia: Code(s): R13.10 - Dysphagia, unspecified <MONA Corral - Last Filed: 04/13/21 09:01> Status: Acute <MONA Corral - Last Filed: 04/13/21 09:01> Assessment and Plan: Barium swallow eval completed today patient is to have no rice or noodles and some fruit continue nectar thickening with meat minced and moist <MONA Corral - Last Filed: 04/13/21 09:01> Review of Systems Review of Systems: Narrative: A 14 organ system Review of Systems was performed and pertinent positives included in the HPI, otherwise remaining ROS is negative. <Hunter Giang
[2021-04-13 09:08] VITALS: PULSE 84
[2021-04-13] MEDS: METOPROLOL SUCCINATE EXT REL 50 MG TABCR PO (09:08)
[2021-04-13] MEDS: lisinopriL 10 MG TABLET PO (09:08)
[2021-04-13] MEDS: TAMSULOSIN HCL 0.4 MG CAPSULE PO (09:08)
[2021-04-13] MEDS: CLOPIDOGREL BISULFATE 75 MG TABLET PO (09:08)
[2021-04-13] MEDS: ASPIRIN 81 MG ENTERIC TABLET PO (09:08)
[2021-04-13] MEDS: LATANOPROST 0.005% OP SOLN 2.5 ML BTL 1 DROP EACH EYE (09:08)
[2021-04-13 15:54] VITALS: BP 107/62; PULSE 70; RESP 18; TEMP 37.1; O2SAT 96
[2021-04-13] MEDS: ATORVASTATIN 40 MG TABLET PO (21:15)
[2021-04-14] VITALS: BP 123/65; PULSE 60; RESP 16; TEMP 37; O2SAT 94
[2021-04-14 08:00] VITALS: BP 136/76; PULSE 55; RESP 16; TEMP 36.8; O2SAT 95
[2021-04-14] MEDS: METOPROLOL SUCCINATE EXT REL 50 MG TABCR PO (08:49)
[2021-04-14] MEDS: CLOPIDOGREL BISULFATE 75 MG TABLET PO (08:49)
[2021-04-14] MEDS: lisinopriL 10 MG TABLET PO (08:49)
[2021-04-14] MEDS: ASPIRIN 81 MG ENTERIC TABLET PO (08:49)
[2021-04-14] MEDS: LATANOPROST 0.005% OP SOLN 2.5 ML BTL 1 DROP EACH EYE (08:50)
[2021-04-14] MEDS: TAMSULOSIN HCL 0.4 MG CAPSULE PO (08:50)
[2021-04-14 16:00] VITALS: BP 120/74; PULSE 56; RESP 16; TEMP 36.6; O2SAT 95
[2021-04-14] MEDS: ATORVASTATIN 40 MG TABLET PO (21:07)
[2021-04-15] VITALS: BP 184/92; PULSE 67; RESP 16; TEMP 36.7; O2SAT 95
--- NOTE | 2021-04-15 07:21 | PC.NURSE ---
Patient's bedding and deprend changed due to being soiled. Patient turned in position. lying in supine position
--- NOTE | 2021-04-15 07:23 | PC.NURSE ---
Patient has a scratch located on left facial cheek
[2021-04-15 07:29] VITALS: BP 150/77; PULSE 58; RESP 12; TEMP 36.5; O2SAT 94
[2021-04-15 08:53] VITALS: PULSE 67
[2021-04-15] MEDS: METOPROLOL SUCCINATE EXT REL 50 MG TABCR PO (08:53)
[2021-04-15] MEDS: ASPIRIN 81 MG ENTERIC TABLET PO (08:55)
[2021-04-15] MEDS: TAMSULOSIN HCL 0.4 MG CAPSULE PO (08:55)
[2021-04-15] MEDS: CLOPIDOGREL BISULFATE 75 MG TABLET PO (08:55)
[2021-04-15] MEDS: lisinopriL 10 MG TABLET PO (08:55)
[2021-04-15] MEDS: LATANOPROST 0.005% OP SOLN 2.5 ML BTL 1 DROP EACH EYE (08:56)
--- NOTE | 2021-04-15 10:58 | PC.NURSE ---
patient moved in chair, patient's legs raised in chair. Currently having care conference in room
[2021-04-15 16:00] VITALS: BP 116/64; PULSE 76; RESP 18; TEMP 36.9; O2SAT 96
[2021-04-15] MEDS: ATORVASTATIN 40 MG TABLET PO (21:01)
[2021-04-15 23:55] VITALS: BP 101/65; PULSE 65; RESP 18; TEMP 36.5; O2SAT 95
[2021-04-16 07:57] VITALS: BP 136/76; PULSE 68; RESP 16; TEMP 37.2; O2SAT 97
[2021-04-16] MEDS: LATANOPROST 0.005% OP SOLN 2.5 ML BTL 1 DROP EACH EYE (08:46)
[2021-04-16 08:47] VITALS: PULSE 68
[2021-04-16] MEDS: METOPROLOL SUCCINATE EXT REL 50 MG TABCR PO (08:47)
[2021-04-16] MEDS: lisinopriL 10 MG TABLET PO (08:47)
[2021-04-16] MEDS: ASPIRIN 81 MG ENTERIC TABLET PO (08:47)
[2021-04-16] MEDS: TAMSULOSIN HCL 0.4 MG CAPSULE PO (08:47)
[2021-04-16] MEDS: CLOPIDOGREL BISULFATE 75 MG TABLET PO (08:47)
--- NOTE | 2021-04-16 15:27 | PC.NURSE ---
therapy in to work with pt
[2021-04-16 16:00] VITALS: BP 118/67; PULSE 65; RESP 18; TEMP 36.8; O2SAT 99
[2021-04-16] MEDS: ATORVASTATIN 40 MG TABLET PO (20:42)
[2021-04-17] VITALS: BP 153/87; PULSE 78; RESP 18; TEMP 36.2; O2SAT 97
[2021-04-17 08:00] VITALS: BP 129/75; PULSE 59; RESP 16; TEMP 36.5; O2SAT 94
[2021-04-17 08:47] VITALS: PULSE 59
[2021-04-17] MEDS: TAMSULOSIN HCL 0.4 MG CAPSULE PO (08:47)
[2021-04-17] MEDS: METOPROLOL SUCCINATE EXT REL 50 MG TABCR PO (08:47)
[2021-04-17] MEDS: LATANOPROST 0.005% OP SOLN 2.5 ML BTL 1 DROP EACH EYE (08:48)
[2021-04-17] MEDS: CLOPIDOGREL BISULFATE 75 MG TABLET PO (08:48)
[2021-04-17] MEDS: ASPIRIN 81 MG ENTERIC TABLET PO (08:48)
[2021-04-17] MEDS: lisinopriL 10 MG TABLET PO (08:48)
[2021-04-17 16:50] VITALS: BP 148/71; PULSE 62; RESP 18; TEMP 36.6; O2SAT 98
[2021-04-17] MEDS: guaiFENesin 12 HR 600 MG TABCR 1200 MG PO (20:45)
[2021-04-17] MEDS: ATORVASTATIN 40 MG TABLET PO (20:46)
[2021-04-17] MEDS: HYDROCORTISONE 1% 30 GM CREAM 1 APPLIC TOPICAL (20:46)
[2021-04-18] VITALS: BP 139/75; PULSE 59; RESP 20; TEMP 37.1; O2SAT 98
[2021-04-18 08:00] VITALS: BP 159/96; PULSE 60; RESP 14; RESP 16; TEMP 36.7; O2SAT 96
[2021-04-18 09:36] VITALS: PULSE 60
[2021-04-18] MEDS: lisinopriL 10 MG TABLET PO (09:36)
[2021-04-18] MEDS: METOPROLOL SUCCINATE EXT REL 50 MG TABCR PO (09:36)
[2021-04-18] MEDS: ASPIRIN 81 MG ENTERIC TABLET PO (09:36)
[2021-04-18] MEDS: guaiFENesin 12 HR 600 MG TABCR 1200 MG PO ×2 (09:36→20:44)
[2021-04-18] MEDS: TAMSULOSIN HCL 0.4 MG CAPSULE PO (09:37)
[2021-04-18] MEDS: CLOPIDOGREL BISULFATE 75 MG TABLET PO (09:37)
[2021-04-18] MEDS: LATANOPROST 0.005% OP SOLN 2.5 ML BTL 1 DROP EACH EYE (09:38)
[2021-04-18] MEDS: HYDROCORTISONE 1% 30 GM CREAM 1 APPLIC TOPICAL ×2 (09:38→20:44)
[2021-04-18 15:45] VITALS: BP 132/77; PULSE 67; RESP 18; TEMP 36.6; O2SAT 95
[2021-04-18] MEDS: ATORVASTATIN 40 MG TABLET PO (20:44)
[2021-04-19] VITALS: BP 138/68; PULSE 58; RESP 18; TEMP 36.9; O2SAT 96
[2021-04-19 08:00] VITALS: BP 142/68; PULSE 60; RESP 16; TEMP 36.8; O2SAT 98
--- NOTE | 2021-04-19 08:09 | PM.EVENT ---
Event Note Event Note Event Note: Patient notes that he has not had a bowel movement in a couple of days we will add a stool softener with daily laxative, he has no other complaint he will be discharging tomorrow to a retirement
[2021-04-19 08:57] VITALS: PULSE 60
[2021-04-19] MEDS: ASPIRIN 81 MG ENTERIC TABLET PO (08:57)
[2021-04-19] MEDS: guaiFENesin 12 HR 600 MG TABCR 1200 MG PO ×2 (08:57→21:19)
[2021-04-19] MEDS: TAMSULOSIN HCL 0.4 MG CAPSULE PO (08:57)
[2021-04-19] MEDS: METOPROLOL SUCCINATE EXT REL 50 MG TABCR PO (08:57)
[2021-04-19] MEDS: lisinopriL 10 MG TABLET PO (08:58)
[2021-04-19] MEDS: CLOPIDOGREL BISULFATE 75 MG TABLET PO (08:58)
[2021-04-19] MEDS: LATANOPROST 0.005% OP SOLN 2.5 ML BTL 1 DROP EACH EYE (08:59)
[2021-04-19] MEDS: HYDROCORTISONE 1% 30 GM CREAM 1 APPLIC TOPICAL ×2 (08:59→21:19)
[2021-04-19 15:28] VITALS: BP 119/61; PULSE 60; RESP 18; TEMP 36.1; O2SAT 97
--- NOTE | 2021-04-19 18:33 | PC.NURSE ---
Pt. sat up in chair for dinner and dennis. well, pt assisted back to bed zaria hyman and dennis. teddy.
[2021-04-19] MEDS: ATORVASTATIN 40 MG TABLET PO (21:19)
[2021-04-19] MEDS: SENNA/DOCUSATE SODIUM TABLET 1 TAB PO (21:19)
[2021-04-20] VITALS: BP 131/75; PULSE 60; RESP 18; TEMP 36.4; O2SAT 98
[2021-04-20 05:12] LABS: Hematocrit 39.8 % (37.0-46.0); Hemoglobin 13.1 g/dL (12.4-15.3); Mean Corpuscular HGB Conc 32.9 g/dL (32.0-36.0); Mean Corpuscular Hemoglobin 30.6 pg (27.0-31.0); Platelet Count Result 205 K/mm3 (150-420); Red Blood Count 4.28 M/mm3 (4.70-6.10); Red Cell Distribution Width 12.5 % (11.6-14.4); White Blood Count 5.9 K/mm3 (4.8-10.8)
[2021-04-20 05:24] LABS: Anion Gap 9 mmol/L (8-16); Blood Urea Nitrogen 24 mg/dL (7-18); Calcium 8.9 mg/dL (8.5-10.1); Carbon Dioxide 27 mmol/L (21-32); Chloride 106 mmol/L (98-108); Estimated CRCL calculation 45 ml/min; Estimated Glomerular Filt Rate > 60; Glucose 91 mg/dL (70-99); Osmolality Calculated 298 mOsm/kg (285-295); Potassium 4.4 mmol/L (3.5-5.1); Sodium 142 mmol/L (136-145)
[2021-04-20 07:55] VITALS: BP 121/65; PULSE 54; RESP 18; TEMP 36.3; O2SAT 98
--- NOTE | 2021-04-20 08:27 | PM.DS ---
DS: Admitting Diagnosis Admitting Diagnosis Admitting Diagnosis: Dysarthria, Dysphagia s/p CVA DS: Discharge Diagnosis Discharge Diagnosis (1) Generalized weakness: Code(s): R53.1 - Weakness Status: Acute Assessment and Plan: ? Exhibit tolerance during physical activity as evidenced by a normal fluctuation of vital signs during physical activity. ? Patient will be ability to perform required activities of daily living. ? Provide appropriate nutrition for healing and strength. ? Use appropriate to prevent falls. ? Continue physical therapy/occupational therapy. 04/09/[address], Pt is slowly talking better and moving right side a little more, slow progress, doing better with drinking 04/20/2021 Pt being DC'ed today to SNF, speech is improved since I last saw the Pt but still has difficulty (2) HTN (hypertension): Code(s): I10 - Essential (primary) hypertension Status: Acute Assessment and Plan: Continue metoprolol. 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 MRI indicates Acute left renetta infarction. Punctate acute left parietal lobe infarction Patient with dysphagia will consult speech therapy Continue PT OT 04/09/2021 Continue ASA, Plavix, Pt working with ST/PT/OT and making slow progress at this time 04/20/2021 continue Plavix, ASA (4) BPH (benign prostatic hyperplasia): Qualifiers: Lower urinary tract symptom detail: post-void dribbling Lower urinary tract symptom presence: symptoms present Qualified Code(s): N40.1 - Benign prostatic hyperplasia with lower urinary tract symptoms; N39.43 - Post-void dribbling Code(s): N40.0 - Benign prostatic hyperplasia without lower urinary tract symptoms Status: Acute Assessment and Plan: Continue Flomax (5) Elevated troponin: Code(s): R77.8 - Other specified abnormalities of plasma proteins Status: Acute Assessment and Plan: likely demand ischemic from acute stroke. Trop 0.212>0.191>0.161 Will need follow up in 1-2 weeks with cardiology 04/09/2021 Pt denies any CP or SOB 04/20/2021 no c/o CP, SOB (6) Dysphagia: Code(s): R13.10 - Dysphagia, unspecified Status: Acute Assessment and Plan: Barium swallow eval completed today patient is to have no rice or noodles and some fruit continue nectar thickening with meat minced and moist 04/20/2021 continue on DC DS: Summary Hospital Course Hospital Course: Pt has been working with ST/PT/OT. He has improved with eating and talking but still needs to work on his speech Time Spent with Patient Time attestation: Total time spent providing and/or coordinating discharge services: 30 minutes Exam Const: General: cooperative, comfortable, no acute distress, alert, awake and Physically active Nutritional Appearance: average body habitus Resp: Effort & Inspection: normal respiratory effort Auscultation: clear to auscultation bilaterally Cardio: Rate: regular rate Heart sounds: S1 normal heart sound present and S2 normal heart sound present GI: GI Palp: Yes Soft to palpation and No Tenderness to palpation present (GI) Auscultation: normal bowel sounds Skin: General skin exam: normal color and dry skin Neuro: General: oriented to person, oriented to place and oriented to time Cognition (Neuro): normal cognition Speech: dysarthria (improved since Pt first arrived) Extrem: General: no pedal edema Psych: Appearance
[2021-04-20] MEDS: ASPIRIN 81 MG ENTERIC TABLET PO (09:30)
[2021-04-20 09:31] VITALS: PULSE 54
[2021-04-20] MEDS: guaiFENesin 12 HR 600 MG TABCR 1200 MG PO (09:31)
[2021-04-20] MEDS: lisinopriL 10 MG TABLET PO (09:31)
[2021-04-20] MEDS: CLOPIDOGREL BISULFATE 75 MG TABLET PO (09:31)
[2021-04-20] MEDS: DOCUSATE SODIUM 100 MG CAPSULE PO (09:31)
[2021-04-20] MEDS: LATANOPROST 0.005% OP SOLN 2.5 ML BTL 1 DROP EACH EYE (09:31)
[2021-04-20] MEDS: TAMSULOSIN HCL 0.4 MG CAPSULE PO (09:31)
[2021-04-20] MEDS: METOPROLOL SUCCINATE EXT REL 50 MG TABCR PO (09:31)
[2021-04-20] MEDS: HYDROCORTISONE 1% 30 GM CREAM 1 APPLIC TOPICAL (09:35)
[2021-04-20 10:54] LABS: SARS-CoV-2 RNA PCR Negative (Negative)
--- NOTE | 2021-04-20 16:00 | PC.NURSE ---
EMS here to transport patient to [facility]. All belongings sent with patient. Report given to EMS, transport paperwork provided to EMS. Patient denies any questions at discharge. Patient left via stretcher accompanied by EMS. Patient had no IV site at time of discharge.
--- NOTE | 2021-04-21 15:12 | PC.NURSE ---
senior living nurse states they received and understood the discharge instructions.
== END 2021-04-20 16:00 | DRG 57 ==
PROVIDERS: Nurse Practitioner; Nurse Practitioner Family; Admitting Provider Emergency Medicine; Visit Provider Emergency Medicine
DX: I69.351 Hemiplegia and hemiparesis following cerebral infarction affecting right dominant side (principal); I69.391 Dysphagia following cerebral infarction; I69.320 Aphasia following cerebral infarction; I10 Essential (primary) hypertension; N40.0 Benign prostatic hyperplasia without lower urinary tract symptoms; H40.9 Unspecified glaucoma; Z20.822 Contact with and (suspected) exposure to COVID-19; Z87.891 Personal history of nicotine dependence
CPT/HCPCS: 36415; 80048; 85027; 92507; 92523; 92526; 92610; 92611; 97110; 97161; 97165; 97530; 97535; A4565; A9270; C9803; U0003; U0005

== ENCOUNTER 2021-06-02 12:26 | Outpatient (CLI) | payer OTHER, MEDICARE, SELFPAY ==
--- NOTE | ~2021-06-02 | XR_ITS ---
MODIFIED ESOPHAGRAM HISTORY: Cerebral infarction. Difficulty swallowing. TECHNIQUE: Modified barium esophagram was performed by speech pathologist under radiologist fluorosco pic guidance. This was recorded on tape. The exam was reviewed on 06/02/2021 13:37 CDT. The DAP for this procedure was 2.0 Gycm2. Fluoroscopy time is 2.7. FINDINGS: Lateral projection of the cervical spine demonstrates prominent ventral osteophytes at mu ltiple levels.. There is premature spill to the level of the piriform sinuses. No penetration or aspi ration.. IMPRESSION: 1: No evidence for laryngeal penetration or aspiration. 2: Please refer to speech pathologist report for additional detail. Reviewed, dictated and finalized at location A.
--- NOTE | 2021-06-02 15:10 | STOPEVAL ---
Thank you for referring Johann Anders to [facility].? The patient is scheduled to be seen for therapy? ____x/week for ___ weeks. Please review, sign, date and return this plan of care NICOLA. I agree with and certify that the following plan of care is medically necessary. Referring Physician Date Admitting Provider: Attending Provider: [place] Referring Provider: TATYANA Outpatient Evaluation Start: 06/02/21 14:50 Freq: Status: Active Protocol: Document 06/02/21 13:00 BAS (Rec: 06/02/21 15:10 BAS [id number]) Therapy Assessment Status Assessment Status Assessment Status Evaluation Outpatient Past Medical History Past Medical History Source of Past Medical History Patient Neurological History Hx Cerebrovascular Accident (CVA) Yes Cardiovascular History Hx Cardiac Disorders No Significant History Respiratory History Hx Respiratory Disorders No Significant History Gastrointestinal History Hx Gastrointestinal Disorders No Significant History Genitourinary History Hx Genitourinary Disorders No Significant History Musculoskeletal History Hx Musculoskeletal Disorders No Significant History Hematological History Hx Hematological Disorders No Significant History Endocrine History Hx Endocrine Disorders No Significant History HEENT History Hx Cataracts Yes Hx Retinal Detachment Yes: right Hx Macular Degeneration Yes Hx Other HEENT Disorders Yes: hard of hearing Integumentary History Hx Skin Disorders No Significant History Reproductive History Hx Reproductive Disorders No Significant History Psychosocial History Hx Psychiatric Disorders No Significant History Pain History History of Any Previous or Ongoing No Significant History Instance of Pain Anesthesia History Hx Anesthesia Reactions No Significant History Evaluation Information Problem Diagnosis Dysphagia Additional Evaluation Detail Resident of [facility]; receives Speech Therapy to address swallowing skills. Diagnostic Tests X-Rays For This Problem Yes: Previous MBS indicates Pureed Diet/Moderately Thick Liquids Previous Treatments Previous Treatments For This Problem Speech Therapy Pain Assessment Timing of Pain Assessment Timing of Pain Assessment Assessment Self Report Self Report Pain Level 0 Pain Score Pain Score 0: Self Report Modified Barium Swallow Evaluation Consistency Solid Consistency 5 mL Method of Presentation Spoon Oral Preparatory Symptoms Within Functional Limits, Premature Spill Posterior Oral Phase Symptoms Delayed Onset,Premature
== END 2021-06-02 12:27 | disposition home or self-care (01) ==
LOC: ANHIMG 12:41
PROVIDERS: PCP Family Medicine
DX: I63.9 Cerebral infarction, unspecified (principal)
CPT/HCPCS: 92611